=== PATIENT | female | born 1950 | race Caucasian/White ===

== ENCOUNTER 2017-07-16 18:59 | Inpatient (IN) | payer OTHER, MEDICARE ==
[~2017-07-16] VITALS: Ht 162.6 cm; Wt 108.6 kg
[2017-07-16] MEDS ORDERED: NTRGSL/4 SL (20:53)
[2017-07-16] MEDS ORDERED: CYAN10005 SQ (20:53)
[2017-07-16] MEDS ORDERED: GABA-113 PO (20:53)
[2017-07-16] MEDS ORDERED: MOME100A INH (20:53)
[2017-07-16] MEDS ORDERED: NXM/40 PO (20:53)
[2017-07-16] MEDS ORDERED: ALBU18002 INH (20:53)
[2017-07-16] MEDS ORDERED: ALBU1.257 NEB (20:53)
[2017-07-16] MEDS ORDERED: MECL1TAB40 PO (20:53)
[2017-07-16] MEDS ORDERED: BTP80 PO (20:53)
[2017-07-16] MEDS ORDERED: ALG PO (20:53)
[2017-07-16] MEDS ORDERED: FAMO40TA6 PO (20:53)
[2017-07-16] MEDS ORDERED: SIMV20TA2 PO (20:53)
[2017-07-16] MEDS ORDERED: PSYL43PO PO (20:53)
[2017-07-16] MEDS ORDERED: CETI10TA84 PO (20:53)
[2017-07-16] MEDS ORDERED: OXYC-57 PO (20:53)
[2017-07-16] MEDS ORDERED: FRS/40 PO (20:53)
[2017-07-16] MEDS ORDERED: ONDA4TAB46 PO (20:53)
[2017-07-16] MEDS ORDERED: ERGO500037 PO (20:53)
[2017-07-16] MEDS ORDERED: ALBU0.633 NEB (20:53)
[2017-07-16] MEDS ORDERED: PROM12.57 PO (20:53)
[2017-07-16] MEDS ORDERED: ALPR-411 PO (20:53)
[2017-07-16] MEDS ORDERED: LEVO50TA PO (20:53)
[2017-07-16] MEDS ORDERED: FAMOTIDINE 20 MG TAB PO ONE (21:26)
[2017-07-16] MEDS ORDERED: MAGNESIUM HYDROXIDE SUSP 30 ML UDC PO PRN (21:30)
[2017-07-16] MEDS ORDERED: POLYETHYLENE (MIRALAX) 17 GM PACK PO PRN (21:30)
[2017-07-16] MEDS ORDERED: ACETAMINOPHEN 325 MG TAB PO PRN (21:30)
--- NOTE | 2017-07-16 21:52 | History and Physical ---
History & Physical Date & Time of Service: Jul 16, 2017 at 21:38 Chief Complaint: Copd Exacerbation Primary Care Physician: No Doctor, Assigned History of Present Illness Source: patient, family 67-year-old female with past medical history of hypertension, paroxysmal atrial fibrillation, chronic pain, hyperlipidemia, hypothyroidism, generalized anxiety disorder, GERD presented as a direct admit from her PCPs office after she had presented with shortness of breath and was found to have low oxygen saturation. The patient stated that she had shortness of breath for several weeks which was getting worse today. Her oxygen saturation was about 85% at her doctor's office and after receiving a breathing treatment it had increased to 89% and she was recommended to go to the hospital. Denies any fevers or chills but complains of a cough which started about a week ago. Cough is productive of yellowish sputum. Denies any chest pain, palpitations, dizziness or lightheadedness. Also complains of nausea but no vomiting. Denies any swelling in her calves or tenderness, long haul travel, immobilization. Past Medical/Surgical History Hypertension, paroxysmal atrial fibrillation, chronic pain, hyperlipidemia, generalized anxiety disorder, GERD, hypothyroidism Past surgical history of hiatal hernia repair. Allergies Coded Allergies: Penicillins (Verified Allergy, Unknown, ., 07/16/17) Home Medications Scheduled Albuterol Sulfate (Albuterol Sulfate), 1 VIAL NEB QID Albuterol Sulfate (Albuterol Sulfate), 2 VIAL NEB Q4 Bifidobacterium (Align), 4 MG PO DAILY Cetirizine (Zyrtec), 10 MG PO DAILY Cyanocobalamin (Vitamin B-12), 1,000 MCG SQ MONTHLY Ergocalciferol (Vitamin D 16489 Unit), 1 CAP PO WK Esomeprazole Magnesium (Nexium), 40 MG PO DAILY Famotidine (Pepcid), 40 MG PO 8PM Furosemide (Lasix), 60 MG PO DAILY Gabapentin (Neurontin), 600 MG PO QID Levothyroxine Sodium (Synthroid), 1 TAB PO DAILY Mometasone Furoate-Formoterol (Dulera 100/5 Mcg), 1 PUFFS INH BID Simvastatin (Zocor), 20 MG PO QPM Sotalol HCl (Sotalol HCl), 80 MG PO BID Scheduled PRN Albuterol Sulfate (Proair Respiclick), 2 PUFFS INH Q4H PRN for SOB/Wheezing Alprazolam (Xanax), 0.25 MG PO Q8H PRN for Anxiety/Agitation Meclizine HCl (Meclizine HCl), 1 TAB PO TID PRN for Dizziness or Vertigo Nitroglycerin (Nitrostat), 1 TAB SL UD PRN for Chest Pain Ondansetron Hcl (Zofran), 4 MG PO Q6H PRN for Nausea or Vomiting Oxycodone/Acetaminophen 5MG/325MG (Percocet 5MG/325MG), 1 TABLET PO Q6H PRN for Pain Promethazine (Phenergan ), 12.5-25 MG PO Q6H PRN for Nausea or Vomiting Psyllium (Metamucil Free & Natural), 1 DOSE PO DAILY PRN for Constipation Review of Systems Constitutional: No fever, No chills Eyes: No worsening of vision ENT: No hearing loss Respiratory: + cough, + sputum, + shortness of breath, + dyspnea on exertion, No wheezing Cardiovascular: No chest pain Abdomen: No pain, No nausea, No vomiting Musculoskeletal: No joint pain Genitourinary - Female: No dysuria, No urinary frequency, No urinary urgency Neurologic: No memory loss Psychiatric: No depression symptoms Endocrine: No fatigue Hematologic / Lymphatic: No abnormal bleeding/bruising Integumentary: No rash Physical Exam Vital Signs Date Time Temp Pulse Resp B/P (MAP) Pulse Ox O2 Delivery O2 Flow Rate FiO2 07/16/17 23:43 37.0 64 20 120/77 (91) 93 Nasal Cannula 2.5 07/16/17 23:29 36.7 62 18 171/86 92 Nasal Cannula 2.0 General Appearance: WD/WN, no apparent distress Head: normocephalic Eyes: normal inspection ENT: normal ENT inspection, hearing grossly normal Neck: supple Respiratory/Chest: chest non-tender, lungs clear, normal breath sounds, no respiratory distress, no accessory muscle use Cardiovascular: regular rate, rhythm Abdomen/GI: normal bowel sounds, non tender, soft Extremities/Musculoskelatal: no calf tenderness, no pedal edema, normal range of motion Neurologic/Psych: no motor/sensory deficits, alert, oriented x 3 Skin: normal color Diagnostics Laboratory Results 07/16/17 21:41 Red Blood Count 5.14, Mean Corpuscular Volume 87.2, Mean Corpuscular Hemoglobin 29.2, Mean Corpuscular Hemoglobin Concent 33.5, Mean Platelet Volume 10.9, Neutrophils (%) (Auto) 60.3, Lymphocytes (%) (Auto) 24.7, Monocytes (%) (Auto) 8.3, Eosinophils (%) (Auto) 6.0, Basophils (%) (Auto) 0.4, Neutrophils # (Auto) 4.75, Lymphocytes # (Auto) 1.94, Monocytes # (Auto) 0.65, Eosinophils # (Auto) 0.47, Basophils # (Auto) 0.03 07/16/17 21:41 Test 07/16/17 21:41 White Blood Count 7.86 K/uL (4.8-10.8) Red Blood Count 5.14 M/uL (4.2-5.4) Hemoglobin 15.0 g/dL (12.0-16.0) Hematocrit 44.8 % (37-47) Mean Corpuscular Volume 87.2 fL (80-100) Mean Corpuscular Hemoglobin 29.2 pg (25-34) Mean Corpuscular Hemoglobin Concent 33.5 g/dl (32-36) Platelet Count 175 K/uL (130-400) Mean Platelet Volume 10.9 fL (7.4-10.4) Neutrophils (%) (Auto) 60.3 % Lymphocytes (%) (Auto) 24.7 % Monocytes (%) (Auto) 8.3 % Eosinophils (%) (Auto) 6.0 % Basophils (%) (Auto) 0.4 % Neutrophils # (Auto) 4.75 K/uL (1.4-6.5) Lymphocytes # (Auto) 1.94 K/uL (1.2-3.4) Monocytes # (Auto) 0.65 K/uL (0.11-0.59) Eosinophils # (Auto) 0.47 K/uL (0-0.5) Basophils # (Auto) 0.03 K/uL (0-0.2) RDW Standard Deviation 44.1 fL (36.4-46.3) RDW Coefficient of Variation 13.9 % (11.5-14.5) Immature Granulocyte % (Auto) 0.3 % Immature Granulocyte # (Auto) 0.02 K/uL (0.00-0.02) Anion Gap 7.0 mmol/L (3-11) Estimated GFR () 82.2 Estimated GFR (Non- 70.9 BUN/Creatinine Ratio 20.1 (10-20) Calcium Level 9.1 mg/dl (8.5-10.1) Troponin I < 0.015 ng/ml (0-0.045) Diagnostic Radiology CHEST 2 VIEWS ROUTINE CLINICAL HISTORY: 67 years-old Female presenting with shortness of breath. TECHNIQUE: PA and lateral views of the chest were obtained. COMPARISON: None. FINDINGS: Atherosclerosis of aortic arch. Cardiac silhouette within normal limits. Bibasilar bandlike opacities. No pleural effusion or pneumothorax. Osseous structures normal. Upper abdomen normal. IMPRESSION: 1. Bibasilar atelectasis suspected. No other evidence of acute cardiopulmonary disease. Electronically signed by: Bryan Locke M.D. 07/16/2017 10:42 PM Impression Assessment and Plan 67-year-old female with past medical history of hypertension, paroxysmal atrial fibrillation, chronic pain, hyperlipidemia, hypothyroidism, generalized anxiety disorder, GERD presented as a direct admit from her PCPs office after she had presented with shortness of breath and was found to have low oxygen saturation. Acute hypoxic respiratory failure: Likely secondary to COPD exacerbation - CBC, BMP, troponin ordered - EKG , chest x-ray ordered -Oxygen per protocol - Started on Solu-Medrol 60 mg every 6 hours with DuoNeb's, dulera - Consult pulmonology Paroxysmal atrial fibrillation: - Rate controlled with sotalol - She is currently not on anticoagulation. - SUKH 2 D2-vasc score of 3, 3.2% stroke risk annually Chronic pain: - Oxycodone home dose as needed Hyperlipidemia: - Continue simvastatin Hypothyroidism: - Continue Synthroid GERD: -Protonix Anxiety: Home dose Xanax as needed Chronic lower extremity swelling: - Lasix full code DVT prophylaxis: SCDs Disposition: admitted to telemetry Resident Physician Supervision Note: Pt seen/examined independently. I discussed the case with the resident and agree with the findings and plan as documented in the note. Any exceptions or clarifications are listed here: 67 y/o F Hx COPD, AF, HPL, hypothyroidism Presents as direct admit from lumonology office for COPD exacerbation OE AAO x 3 S1,2 R B/L wheezing NT, ND, BS+ No CCE P: Treat for COPD exacerbation as above - consult pulm Cont Sotalol for PAF Cont Synthroid Cont Statin Tx Documented By: Hussein Trevino Level of Care Telemetry Resuscitation Status FULL RESUSCITATION VTE Prophylaxis VTE Risk Assessment Done? Y/N: Yes Risk Level: Moderate Given or contraindicated: SCD's Resident Tracking Resident Involvement: Resident Care Provided Care Provided: Adult Hospital Medicine
[2017-07-16 22:00] LABS: BASO % 0.4 %; BASO ABS # 0.03 K/uL (0-0.2); COMPLETE YES; HEMATOCRIT 44.8 % (37-47); IG% 0.3 %; LYMPH % 24.7 %; LYMPH ABS # 1.94 K/uL (1.2-3.4); MEAN CELL VOLUME 87.2 fL (80-100); MEAN CORPUSCULAR HEMOGLOBIN 29.2 pg (25-34); MEAN CORPUSCULAR HGB CONC 33.5 g/dl (32-36); MEAN PLATELET VOLUME 10.9 fL (7.4-10.4); MONO % 8.3 %; NEUT % 60.3 %; PLATELET COUNT 175 K/uL (130-400); RED BLOOD COUNT 5.14 M/uL (4.2-5.4); WHITE BLOOD COUNT 7.86 K/uL (4.8-10.8)
[2017-07-16] MEDS: DULERA~ORDER AWAITING ACTION SCH (22:00)
[2017-07-16] MEDS ORDERED: ALBUTEROL HFA 8 GM INHALER INH PRN (22:00)
[2017-07-16 22:33] LABS: BLOOD UREA NITROGEN 17 mg/dl (7-18); BUN/CREATININE RATIO 20.1 (10-20); CALCIUM 9.1 mg/dl (8.5-10.1); CARBON DIOXIDE 29 mmol/L (21-32); CHLORIDE 105 mmol/L (98-107); CREATININE 0.84 mg/dl (0.60-1.20); GLUCOSE 101 mg/dl (70-99); POTASSIUM 4.1 mmol/L (3.5-5.1); SODIUM 141 mmol/L (136-145)
--- NOTE | 2017-07-16 22:43 | DIAGNOSTIC IMAGING REPORT ---
CHEST 2 VIEWS ROUTINE CLINICAL HISTORY: 67 years-old Female presenting with shortness of breath. TECHNIQUE: PA and lateral views of the chest were obtained. COMPARISON: None. FINDINGS: Atherosclerosis of aortic arch. Cardiac silhouette within normal limits. Bibasilar bandlike opacities. No pleural effusion or pneumothorax. Osseous structures normal. Upper abdomen normal. IMPRESSION: 1. Bibasilar atelectasis suspected. No other evidence of acute cardiopulmonary disease. Electronically signed by: Bryan Locke M.D. 07/16/2017 10:42 PM Dictated Date/Time: 07/16/2017 10:41 PM
[2017-07-16] MEDS: METHYLPREDNISOLONE IV 60 MG in SYRINGE 0 ML IV SCH (23:11)
[2017-07-16] MEDS: SOTALOL HCL 80 MG TAB PO SCH (23:12)
[2017-07-16 23:29] VITALS: BP 171/86; PULSE 62; TEMP 36.7; O2SAT 92; Ht 162.6 cm; Wt 108.6 kg
[2017-07-16] MEDS ORDERED: NURSING VERBAL MED ORDER ONE (23:30)
[2017-07-16 23:43] VITALS: BP 120/77; PULSE 64; TEMP 37; O2SAT 93
[2017-07-17] VITALS (9 sets, daily range): BP systolic 126–148; BP diastolic 65–82; PULSE 71–93; TEMP 36.4–37.1; O2SAT 90–96
[2017-07-17] MEDS: METHYLPREDNISOLONE IV 60 MG in SYRINGE 0 ML IV SCH ×4 (04:47→23:22)
[2017-07-17] MEDS: LEVOTHYROXINE 50 MCG TAB PO SCH (05:59)
[2017-07-17] MEDS: ALPRAZOLAM 0.5 MG TAB PO PRN ×3 (06:57→23:22)
--- NOTE | 2017-07-17 07:06 | CONSULTATION REPORT ---
DATE OF CONSULTATION: 07/16/2017 DICTATING FOR: Dr. Shelley Contreras. REASON FOR CONSULTATION: Shortness of breath, hypoxia. HISTORY OF PRESENT ILLNESS: The patient is a 67-year-old female who we follow in the office for mild obstructive lung defect with reversibility, who presented to the office in the outpatient setting on 07/16/2017. She presented and was evaluated in the office. She has been having several-week history of increased shortness of breath. This has worsened over the past 3-4 days. Over the past several weeks, she has had increased coughing with yellow mucus. She has not had any hemoptysis. She has had increased shortness of breath with exertion. She has also had increased shortness of breath at rest at times. She did have temperature of 100 degrees max x1. She is not sure if she had any fevers. She did have some wheezing as well. Wheezing will come and go. She states that she is having difficulty sleeping at night due to shortness of breath and cough. She states that she is using her nebulizer but it is not really helping much. She recently had her nebulizer switched to Xopenex due to recent diagnosis of paroxysmal atrial fibrillation. She states that she did have a reaction to Xopenex in the form of her mouth being irritated and having some swelling. Because of this, she went back to her albuterol/ipratropium combination which she had been on previously. She states that that is not really helping her significantly. She states that she has been having some substernal chest discomfort with this. She has also noticed some palpitations. Of note, she recently was evaluated by cardiology and diagnosed with paroxysmal atrial fibrillation and was started on sotalol. Currently, she continues to be on sotalol and is followed by cardiology in [place], [place]. She has been having some increased fatigue as well. She has not had any significant edema. She does have some baseline edema which she rates mild, does worsen through the day but will go down overnight. In reviewing her chart, she did have a CT angiogram in 12/2016 due to some substernal chest pain and pleuritic chest pain, which did not show any evidence of any abnormality. Her last PFT was in 2015, showed a forced vital capacity of 80% of predicted, an FEV1 of 74% predicted, an FEV1 to FVC ratio of 74%, residual volume of 165% and a volume-adjusted DLCO of 121% for interpretation of a mild obstructive change with reversibility with a reduced nonvolume adjusted diffusion capacity. We do not have any more recent imaging or labs. She has been feeling more fatigued and tired as well; however, she attributes this to not being able to sleep well. She denies any GI issues. No nausea or vomiting. No indigestion or heartburn. No difficulty swallowing or difficulty with her bowel. She does have a known history of aspiration; however, she denies any recent aspiration episodes. She did have some diarrhea recently and was evaluated in the ER and discharged to home. She states that that has been improving. She denies any difficulty voiding. No hesitancy or urgency. PAST MEDICAL HISTORY: Includes history of Lyme disease, history of aspiration, paroxysmal atrial fibrillation, asthma, cough, dysphagia, hiatal hernia, hypothyroidism. PAST SURGICAL HISTORY: Includes cholecystectomy, hysterectomy and tonsillectomy with adenoidectomy. FAMILY HISTORY: Includes diabetes mellitus, coronary artery disease and cerebrovascular disease. SOCIAL HISTORY: The patient is a lifelong nondrinker, nonsmoker. LISTED ALLERGIES: INCLUDE PENICILLIN. CURRENT MEDICATIONS: Include Stiolto Respimat 2 puffs daily; DuoNeb via nebulizer q. 4 hours as needed; furosemide 20 mg 3 tablets daily or as directed; potassium chloride 20 mEq 1 tablet daily; Nexium 40 mg daily; levothyroxine 50 mcg daily; cetirizine 10 mg at bedtime; gabapentin 600 mg 4 times daily; meclizine 25 mg 1 tablet 3 times daily; Zofran 4 mg every 4 hours as needed; Percocet 5/325 one tablet every 6 hours as needed; Savella 50 mg 1 tablet twice daily; sertraline, we do not have the dose, she does take 2 tablets daily; sotalol 80 mg 1 tablet twice daily; vitamin D3 5000 units 1 tablet weekly; Xanax 0.25 mg 1 tablet 3 times daily. REVIEW OF SYSTEMS: As above, otherwise unremarkable. PHYSICAL EXAMINATION: GENERAL: The patient is a 67-year-old female sitting in exam room, appears not to be feeling well. She is alert and oriented x3. She is interactive and cooperative. She is able to complete sentences for the most part without difficulty. VITAL SIGNS: Temp is 97.8, pulse 68, respiration 22, blood pressure is 122/80, pulse ox was initially 85% on room air, did go up to 92% on 2 liters. Weight is 246 pounds. HEENT: Normocephalic, atraumatic. Pupils equal, round and reactive to light and accommodation. Extraocular movements are intact. Conjunctivae are pink, nonicteric. [place], slightly pasty gingival and buccal mucosa. No erythema or edema. No white plaques noted. NECK: Thick and short. No mass. No adenopathy. No bruits noted. No tenderness to palpation. CHEST: The patient has diminished breath sounds bilaterally with the left base being worse than the right. Few expiratory wheeze. No rale or rhonchi noted. CARDIOVASCULAR: Regular rate and rhythm. No appreciated murmurs, gallops or rubs. ABDOMEN: Bowel sounds are present. Abdomen soft, nontender. No guarding, rigidity or organomegaly. EXTREMITIES: Trace edema bilaterally. No tenderness to palpation. Distal pulses are full and equal. No cyanosis noted. NEUROLOGIC: Cranial nerves II-XII are intact. No focal deficit noted. No recent imaging or labs are available at this time. IMPRESSION: The patient is a 67-year-old female with worsening shortness of breath and hypoxia with known history of mild obstructive disease which is reversible as well as mild to moderate diffusion capacity reduction. This appears to be an exacerbation of her chronic obstructive pulmonary disease along with acute respiratory insufficiency. I feel that the patient would benefit from oxygen therapy. Would recommend to do imaging of the chest in the form of a CT angiogram if her creatinine is appropriate due to recent diagnosis of paroxysmal atrial fibrillation. Also would recommend aggressive pulmonary toilet in the form of DuoNeb q. 4 hours while awake. Also recommend the patient be placed on Solu-Medrol 60 mg q. 8 hours. Also would start antibiotic coverage in the form of Levaquin 750 mg q. 24 hours. We will reevaluate in the a.m. for further management and treatment.
[2017-07-17] MEDS: ALBUT/IPRATROP 3MG/0.5MG NEB 3 ML VIAL INH SCH ×4 (07:19→19:44)
[2017-07-17] MEDS: DULERA~ORDER AWAITING ACTION SCH ×4 (08:00→23:10)
[2017-07-17] MEDS: OXYCODONE/ACETAMINOPHEN 5-325 TAB PO PRN ×3 (08:06→23:22)
[2017-07-17] MEDS: GABAPENTIN 300 MG CAP PO SCH ×4 (08:06→21:00)
[2017-07-17] MEDS: PANTOprazole SOD 40 MG TAB PO SCH (08:07)
[2017-07-17] MEDS: FAMOTIDINE 20 MG TAB PO SCH (08:07)
[2017-07-17] MEDS: FUROSEMIDE 20 MG TAB PO SCH (08:08)
[2017-07-17] MEDS: SOTALOL HCL 80 MG TAB PO SCH ×2 (08:08→21:00)
--- NOTE | 2017-07-17 08:24 | Clinical Documentation Query ---
RADHA Crawford : CLINICAL DOCUMENTATION QUERY Clinical documentation includes a diagnosis of: Acute hypoxic respiratory failure. Assessment documentation includes "no respiratory distress, no accessory muscle use" and "no apparent distress". Noted only was "oxygen saturation was about 85% at her doctor's office and after receiving a breathing treatment it had increased to 89%". No tachypnea or tachycardia noted. Currently oxygen supplementation at only 2-2.5 L/min via nasal cannula. Due to stringent requirements by our coding department, multiple clinical indicators associated with this diagnosis must be present in order for this to be coded/captured within the medical record. If appropriate, please document 2 or more of the following clinical indicators in daily progress notes and the discharge summary. If you feel the diagnosis of acute respiratory failure was made in error, or do not agree with it, simply discontinue documentation thereof. Acute Respiratory Failure indicators include: * Respirations >28 * Air hunger * Use of accessory muscles of respiration * Inability to speak in full sentences * Cyanosis * Pulse ox <90% RA or <95% on O2 *pH <7.35 or >7.45 * pO2 < 60 mm Hg (or 10mm below COPD patient's baseline) * pCO2 >50mm Hg (or 10mm above COPD patient's baseline) * mechanical ventilation * Increased work of breathing * Tachypnea IF IN AGREEMENT, YOU MUST DOCUMENT ABOVE DIAGNOSTIC STATEMENT IN DAILY PROGRESS NOTES AND DISCHARGE SUMMARY. This document is not part of the patient's record. Thank You, Jovany Irwin, RENETTA [phone]
[2017-07-17] MEDS ORDERED: OPTIRAY 320 IV PRN (08:30)
--- NOTE | 2017-07-17 08:34 | Clinical Documentation Query ---
RADHA Crawford : CLINICAL DOCUMENTATION QUERY Per EMR documentation of nursing staff, BMI noted to be 42.2 kg/m*m. In order to capture this clinically relevant data, the provider must explicitly document an associated condition. As appropriate, consider documentation of such as suggested below. Thank you. In your clinical opinion is this patient being managed for: ( ) Morbid obesity, BMI 42.4 kg/m*m ( ) Not Agree ( ) Other explanation of clinical findings (Please Explain) ( ) Unable to determine (Please Define) ( ) Need to Discuss The medical record reflects the following clinical findings, treatment, and risk factors. Clinical Indicators: As above Treatment: Treatment of conditions listed as risk factors Risk Factors: Chronic pain, caloric intake >expenditure, anxiety disorder Please clarify and document your clinical opinion in the progress notes and discharge summary. Terms such as "probable", "suspected", "likely", "questionable", "possible", or "still to be ruled out" are acceptable. IF IN AGREEMENT, YOU MUST DOCUMENT ABOVE DIAGNOSTIC STATEMENT IN DAILY PROGRESS NOTES AND DISCHARGE SUMMARY. This document is not part of the patient's record. Thank You, Jovany Irwin, RN [phone]
[2017-07-17] MEDS ORDERED: LEVOFLOXACIN 750 MG TAB PO SCH (11:00)
[2017-07-17] MEDS: ONDANSETRON INJ 2 MG/ML 2 ML VIAL IV PRN ×3 (11:35→23:24)
--- NOTE | 2017-07-17 13:33 | Family Medicine Progress Note ---
Progress Note Date of Service Jul 17, 2017. Subjective Pt evaluation today including: conversation w/ patient, physical exam, chart review, lab review, review of studies Pain: No pain reported this morning Voiding: no voiding problems, no incontinence Patient is resting comfortably in bed this morning and states that her shortness of breath has significantly improved with oxygen. She is still continuing to have a cough with sputum production. She also had an episode of vomiting with coughing, vomiting yellowish fluid. She is also feeling more nauseous and states that she has been having daily nausea and dry heaving since her Joseluis fundoplication 6 years ago and is on daily Phenergan. she also states that her Atrial Fibrillation was discovered when she was placed on a holter for 1 month and was subsequently started on Sotalol by Dr. Vitale. Constitutional: + fatigue, No fever, No chills, No weakness Respiratory: + cough, + sputum, No wheezing, No shortness of breath Cardiovascular: No chest pain, No palpitations Abdomen: + nausea, + vomiting, No pain, No diarrhea, No constipation, No GI bleeding Musculoskeletal: No muscle pain Female : No dysuria Medications Current Inpatient Medications Medications (Trade) Dose Ordered Sig/Juliane Route Start Time Stop Time Status Last Admin Dose Admin Acetaminophen (Tylenol Tab) 650 mg Q4H PRN PO 07/16/17 21:30 08/15/17 21:29 Magnesium Hydroxide (Milk Of Magnesia Susp) 30 ml Q12H PRN PO 07/16/17 21:30 08/15/17 21:29 Ondansetron HCl (Zofran Inj) 4 mg Q6H PRN IV 07/16/17 21:30 08/15/17 21:29 07/17/17 11:35 4 MG Polyethylene (Miralax Powder Packet) 17 gm DAILY PRN PO 07/16/17 21:30 08/15/17 21:29 Alprazolam (Xanax Tab) 0.25 mg Q8H PRN PO 07/16/17 21:30 08/15/17 21:29 07/17/17 15:40 0.25 MG Famotidine (Pepcid Tab) 40 mg DAILY PO 07/17/17 09:00 08/16/17 08:59 07/17/17 08:07 40 MG Furosemide (Lasix Tab) 60 mg DAILY PO 07/17/17 09:00 08/16/17 08:59 07/17/17 08:08 60 MG Gabapentin (Neurontin Cap) 600 mg QID PO 07/17/17 09:00 08/16/17 08:59 07/17/17 15:44 600 MG Levothyroxine Sodium (Synthroid Tab) 50 mcg DAILYBB PO 07/17/17 06:00 08/16/17 05:59 07/17/17 05:59 50 MCG Simvastatin (Zocor Tab) 20 mg QPM PO 07/17/17 21:00 08/16/17 20:59 Sotalol HCl (Betapace Tab) 80 mg BID PO 07/17/17 09:00 08/16/17 08:59 07/17/17 08:08 80 MG Albuterol (Ventolin Hfa Inhaler) 2 puffs Q4H PRN INH 07/16/17 22:00 08/15/17 21:59 Pantoprazole Sodium (Protonix Tab) 40 mg QAM PO 07/17/17 09:00 08/16/17 08:59 07/17/17 08:07 40 MG Miscellaneous Information (Order Awaiting Action) 1 ea QS N/A 07/16/17 22:00 08/15/17 21:59 Methylprednisolone Sodium Succinate 60 mg/Syringe 0.96 ml @ 1.5 mls/min Q6H IV 07/16/17 22:00 08/15/17 21:59 07/17/17 15:42 1.5 MLS/MIN Albuterol/ Ipratropium (Duoneb) 3 ml QIDR INH 07/17/17 08:00 08/16/17 07:59 07/17/17 15:17 3 ML Oxycodone/ Acetaminophen (Percocet 5-325mg Tab) 1 tab Q6H PRN PO 07/17/17 01:30 07/31/17 01:29 07/17/17 15:39 1 TAB Ioversol (Optiray 320) 100 ml UD PRN IV 07/17/17 08:30 07/21/17 08:29 Promethazine HCl 25 mg/Sodium Chloride 51 ml @ 204 mls/hr Q6H PRN IV 07/17/17 14:30 08/16/17 14:29 Levofloxacin 500 mg/Prmx 100 ml @ 100 mls/hr DAILY@1100 IV 07/18/17 11:00 07/20/17 10:59 Objective Vital Signs Date Time Temp Pulse Resp B/P (MAP) Pulse Ox O2 Delivery O2 Flow Rate FiO2 07/17/17 15:18 71 18 94 Nasal Cannula 2.5 07/17/17 15:01 36.4 71 20 126/74 (91) 93 Nasal Cannula 3.0 07/17/17 12:00 Nasal Cannula 2.0 07/17/17 11:37 37.0 72 18 131/65 (87) 96 07/17/17 08:00 Nasal Cannula 2.0 07/17/17 07:55 36.8 71 18 127/72 (90) 92 07/17/17 07:15 71 18 92 Nasal Cannula 2.5 07/17/17 04:30 36.9 71 18 126/78 (94) 90 Nasal Cannula 2.5 07/17/17 04:00 Nasal Cannula 2.0 07/16/17 23:59 Nasal Cannula 2.0 07/16/17 23:43 37.0 64 20 120/77 (91) 93 Nasal Cannula 2.5 07/16/17 23:29 36.7 62 18 171/86 92 Nasal Cannula 2.0 Physical Exam General Appearance: WD/WN, no apparent distress Eyes: normal inspection, sclerae normal Respiratory/Chest: chest non-tender, no respiratory distress, no accessory muscle use, + wheezing (mild expiratory wheezing) Cardiovascular: no edema, no gallop, no murmur, + irregularly irregular Abdomen: normal bowel sounds, non tender, soft Extremities: non-tender, no calf tenderness, + pedal edema (1+) Neurologic/Psychiatric: alert, oriented x 3, + depressed affect Laboratory Results Results Past 24 Hours Test 07/16/17 21:41 07/17/17 06:02 07/17/17 14:08 Range/Units White Blood Count 7.86 4.8-10.8 K/uL Red Blood Count 5.14 4.2-5.4 M/uL Hemoglobin 15.0 12.0-16.0 g/dL Hematocrit 44.8 37-47 % Mean Corpuscular Volume 87.2 80-100 fL Mean Corpuscular Hemoglobin 29.2 25-34 pg Mean Corpuscular Hemoglobin Concent 33.5 32-36 g/dl Platelet Count 175 130-400 K/uL Mean Platelet Volume 10.9 7.4-10.4 fL Neutrophils (%) (Auto) 60.3 % Lymphocytes (%) (Auto) 24.7 % Monocytes (%) (Auto) 8.3 % Eosinophils (%) (Auto) 6.0 % Basophils (%) (Auto) 0.4 % Neutrophils # (Auto) 4.75 1.4-6.5 K/uL Lymphocytes # (Auto) 1.94 1.2-3.4 K/uL Monocytes # (Auto) 0.65 0.11-0.59 K/uL Eosinophils # (Auto) 0.47 0-0.5 K/uL Basophils # (Auto) 0.03 0-0.2 K/uL RDW Standard Deviation 44.1 36.4-46.3 fL RDW Coefficient of Variation 13.9 11.5-14.5 % Immature Granulocyte % (Auto) 0.3 % Immature Granulocyte # (Auto) 0.02 0.00-0.02 K/uL Sodium Level 141 136-145 mmol/L Potassium Level 4.1 3.5-5.1 mmol/L Chloride Level 105 98-107 mmol/L Carbon Dioxide Level 29 21-32 mmol/L Anion Gap 7.0 3-11 mmol/L Blood Urea Nitrogen 17 7-18 mg/dl Creatinine 0.84 0.60-1.20 mg/dl Estimated GFR () 82.2 Estimated GFR (Non- 70.9 BUN/Creatinine Ratio 20.1 10-20 Random Glucose 101 70-99 mg/dl Calcium Level 9.1 8.5-10.1 mg/dl Troponin I < 0.015 0-0.045 ng/ml Hepatitis C Antibody Screen PRELIM POS NEG Assessment and Plan Patient is a 67 year old female with a past medical history of mild obstructive pulmonary disease, HTN, paroxysmal atrial fibrillation, chronic pain, hyperlipidemia, hypothyroidism, LUBNA, GERD, and s/p Joseluis fundoplication 6 years ago that presents with a several week history of shortness of breath and cough 1) Acute Hypoxic Respiratory Failure - Possible COPD exacerbation vs Asthma vs Pulmonary Embolism - IV Methylprednisolone 60mg --> Made q8h due to nausea while on q6h dosing - Levaquin 500mg IV --> Vomited after first dose (PO) this afternoon so change to IV for tomorrow morning - Duoneb QID - Albuterol q4h PRN - Supplemental oxygen to maintain oxygen saturation >90% - Hold home combivent for time being - Patient on home Dulera that is not in Pharmacy Formulary --> Currently getting Duonebs with steroid but encourage patient to have someone bring from home - Ordered CTA for PE to evaluate for pulmonary embolism 2) Nausea - Chronic since Joseluis Fundoplication 6 years ago - Zofran 4mg IV PRN - 1 dose this morning and still nauseous - Phenergan 30mg IV q6h scheduled --> On Phenergan at home 3) Paroxysmal Atrial Fibrillation - EKG: Currently in NSR - On Sotalol 80mg BID - Obtain cardiology records --> Followed by Dr. Vitale - Currently not anticoagulated 4) Lower Extremity Edema - Lasix 60mg daily 5) Hyperlipidemia - Zocor 6) GERD - Protonix 7) Chronic Pain - Gabapentin - Pepcid 8) DVT - Lovenox 9) Code Status - Full Resuscitation Resident Tracking Resident Involvement: Resident Care Provided Care Provided: Adult Hospital Medicine Reviewed: Pt Seen/Exam by Me History Resident Physician Supervision Note: I interviewed and examined the patient. Discussed with Dr. Izaguirre and agree with findings and plan as documented in the note. Any exceptions or clarifications are listed here: Patient feeling very nauseous right now which is chronic for her but was a little bit worse today after taking the oral Levaquin. Her breathing feels better now that she is on oxygen. Patient reports she has never been on anticoagulation for her history of atrial fibrillation, she is only been on sotalol. Telemetry and vitals reviewed Obese, appears in mild distress, lying in bed on her side. Regular rate and rhythm, no murmurs gallops rubs Lungs with faint extremely wheezes and prolonged expiratory phase Abdomen obese positive bowel sounds soft nontender Extremities no edema Skin no rashes 67-year-old female with acute hypoxemic respiratory failure and what appears to be asthma with possible mixed picture with COPD and decreased DLCO on recent PFTs. Appreciate pulmonary consult -Continue nebulizers and supplemental oxygen -Obtain cardiology records for more information on her atrial fibrillation, question if she should be on anticoagulation? -Check CT angiogram of the chest rule out PE as cause of hypoxemia -IV Phenergan for nausea Documented By: Rajni Haro
--- NOTE | 2017-07-17 14:33 | Family Medicine Progress Note ---
Progress Note Date of Service Jul 17, 2017. Subjective Pt evaluation today including: conversation w/ patient, physical exam, chart review, lab review, review of studies Pain: No pain reported this morning Voiding: no voiding problems Patient resting comfortably in bed
--- NOTE | 2017-07-17 14:58 | DIAGNOSTIC IMAGING REPORT ---
(CHEST FOR PE) ANGIO WITH CLINICAL HISTORY: 67 years-old Female presenting with hypoxia, COPD exacerbation, clinical concern for pulmonary embolus. TECHNIQUE: Multidetector CT angiography of the chest was performed after administration of intravenous contrast. 3-D volumetric and maximum intensity projection (MIP) images were subsequently reconstructed for review. IV contrast: 120 mL of Optiray 320. A dose lowering technique was used consistent with the principles of ALARA (as low as reasonably achievable). COMPARISON: Chest x-ray from 07/16/2017. CT DOSE (mGy.cm): The estimated cumulative dose is 627.21 mGy.cm. FINDINGS: Director Of Business Services topogram: Unremarkable. Pulmonary vasculature: The study is suboptimal for assessment of the pulmonary vascular tree secondary to severe respiratory motion artifact. No gross filling defect within the central pulmonary arteries. Main pulmonary artery is mildly enlarged. No flattening of the interventricular septum. No intracardiac filling defect. Reflux into the hepatic veins suggests elevated right heart pressures. Remaining chest: On soft tissue windows, normal thyroid and thoracic inlet. No axillary, supraclavicular, hilar, or mediastinal lymphadenopathy. Atherosclerosis of aortic arch. Normal heart size. No pericardial or pleural effusion. Mild central biliary ductal prominence. Small hiatal hernia. Postsurgical changes at the gastroesophageal junction may suggest prior Jessica procedure or resection. On lung windows, minimal bandlike opacities at the right lung base likely atelectasis or scarring. No emphysematous changes. No other focal infiltrate. Airways patent. On bone windows, degenerative changes of the thoracic spine. IMPRESSION: 1. No evidence of central pulmonary embolus. The study is suboptimal, degraded by extensive respiratory motion artifact limiting diagnostic sensitivity. No convincing evidence of acute intrathoracic pathology. Minimal right basilar atelectasis or scarring. 2. Allowing for limited image quality, no significant emphysematous changes. Electronically signed by: Bryan Locke M.D. 07/17/2017 2:56 PM Dictated Date/Time: 07/17/2017 2:51 PM
--- NOTE | 2017-07-17 18:02 | Pulmonology Progress Note ---
Pulmonary Progress Note Date of Service Jul 17, 2017. Attending Dr. Contreras Subjective Patient seen and examined this afternoon. She states that she is feeling nauseous. She had episode of vomiting. She still complains of intermittent coughing associated with yellowish-green productive sputum. Objective VS reviewed Gen: She looks ill, AAOx3, no respiratory distress noted CVS: S1, S2, RRR Lungs: bilateral sporadic wheezing throughout lung jackson Abd: obese, NT/ND, BS+ Ext: no cyanosis, no clubbing, bilateral peripheral edema Labs reviewed Imaging reviewed EKG 07/16/2017 Normal sinus rhythm Low voltage QRS ST & T wave abnormality, consider anterior ischemia CT chest 07/17/2017 IMPRESSION: 1. No evidence of central pulmonary embolus. The study is suboptimal, degraded by extensive respiratory motion artifact limiting diagnostic sensitivity. No convincing evidence of acute intrathoracic pathology. Minimal right basilar atelectasis or scarring. 2. Allowing for limited image quality, no significant emphysematous changes. CXR: 07/17/2017 FINDINGS: Atherosclerosis of aortic arch. Cardiac silhouette within normal limits. Bibasilar bandlike opacities. No pleural effusion or pneumothorax. Osseous structures normal. Upper abdomen normal. IMPRESSION: 1. Bibasilar atelectasis suspected. No other evidence of acute cardiopulmonary disease. Assessment & Plan ACOS with exacerbation Hypoxia Patient appears to have components of both asthma and COPD, this suggest an overlap syndrome. CT chest is negative for PE, however the main pulmonary artery is mildly enlarged with reflux into the hepatic veins suggestive of elevated right heart pressures. At this time I would suggest a TTE to further assess cardiac function and RVSP. Continue with supplemental oxygen therapy to maintain SaO2 btw 88-92% Continue with albuterol/ipratropium q6h prn, however would switch albuterol to xopenex Continue with Levoquin IV daily, Solumedrol 60 mg Q8H, and Lasix Data Medications: Current Inpatient Medications Medications (Trade) Dose Ordered Sig/Juliane Route Start Time Stop Time Status Last Admin Dose Admin Acetaminophen (Tylenol Tab) 650 mg Q4H PRN PO 07/16/17 21:30 08/15/17 21:29 Magnesium Hydroxide (Milk Of Magnesia Susp) 30 ml Q12H PRN PO 07/16/17 21:30 08/15/17 21:29 Ondansetron HCl (Zofran Inj) 4 mg Q6H PRN IV 07/16/17 21:30 08/15/17 21:29 07/17/17 11:35 4 MG Polyethylene (Miralax Powder Packet) 17 gm DAILY PRN PO 07/16/17 21:30 08/15/17 21:29 Alprazolam (Xanax Tab) 0.25 mg Q8H PRN PO 07/16/17 21:30 08/15/17 21:29 07/17/17 06:57 0.25 MG Famotidine (Pepcid Tab) 40 mg DAILY PO 07/17/17 09:00 08/16/17 08:59 07/17/17 08:07 40 MG Furosemide (Lasix Tab) 60 mg DAILY PO 07/17/17 09:00 08/16/17 08:59 07/17/17 08:08 60 MG Gabapentin (Neurontin Cap) 600 mg QID PO 07/17/17 09:00 08/16/17 08:59 07/17/17 08:06 600 MG Levothyroxine Sodium (Synthroid Tab) 50 mcg DAILYBB PO 07/17/17 06:00 08/16/17 05:59 07/17/17 05:59 50 MCG Simvastatin (Zocor Tab) 20 mg QPM PO 07/17/17 21:00 08/16/17 20:59 Sotalol HCl (Betapace Tab) 80 mg BID PO 07/17/17 09:00 08/16/17 08:59 07/17/17 08:08 80 MG Albuterol (Ventolin Hfa Inhaler) 2 puffs Q4H PRN INH 07/16/17 22:00 08/15/17 21:59 Pantoprazole Sodium (Protonix Tab) 40 mg QAM PO 07/17/17 09:00 08/16/17 08:59 07/17/17 08:07 40 MG Miscellaneous Information (Order Awaiting Action) 1 ea QS N/A 07/16/17 22:00 08/15/17 21:59 Methylprednisolone Sodium Succinate 60 mg/Syringe 0.96 ml @ 1.5 mls/min Q6H IV 07/16/17 22:00 08/15/17 21:59 07/17/17 10:30 1.5 MLS/MIN Albuterol/ Ipratropium (Duoneb) 3 ml QIDR INH 07/17/17 08:00 08/16/17 07:59 07/17/17 07:19 3 ML Oxycodone/ Acetaminophen (Percocet 5-325mg Tab) 1 tab Q6H PRN PO 07/17/17 01:30 07/31/17 01:29 07/17/17 08:06 1 TAB Ioversol (Optiray 320) 100 ml UD PRN IV 07/17/17 08:30 07/21/17 08:29 Promethazine HCl 25 mg/Sodium Chloride 51 ml @ 204 mls/hr Q6H PRN IV 07/17/17 14:30 08/16/17 14:29 Levofloxacin 500 mg/Prmx 100 ml @ 100 mls/hr DAILY@1100 IV 07/18/17 11:00 07/20/17 10:59 I & O: 24-Hour Column 07/18/17 08:00 Intake Total 320 ml Output Total 1100 ml Balance -780 ml Vital Signs: Date Time Temp Pulse Resp B/P (MAP) Pulse Ox O2 Delivery O2 Flow Rate FiO2 07/17/17 15:01 36.4 71 20 126/74 (91) 93 Nasal Cannula 3.0 07/17/17 12:00 Nasal Cannula 2.0 07/17/17 11:37 37.0 72 18 131/65 (87) 96 07/17/17 08:00 Nasal Cannula 2.0 07/17/17 07:55 36.8 71 18 127/72 (90) 92 07/17/17 04:30 36.9 71 18 126/78 (94) 90 Nasal Cannula 2.5 07/17/17 04:00 Nasal Cannula 2.0 07/16/17 23:59 Nasal Cannula 2.0 07/16/17 23:43 37.0 64 20 120/77 (91) 93 Nasal Cannula 2.5 07/16/17 23:29 36.7 62 18 171/86 92 Nasal Cannula 2.0 Laboratory Results: Last 24 Hours Test 07/16/17 21:41 07/17/17 06:02 07/17/17 14:08 White Blood Count 7.86 K/uL Red Blood Count 5.14 M/uL Hemoglobin 15.0 g/dL Hematocrit 44.8 % Mean Corpuscular Volume 87.2 fL Mean Corpuscular Hemoglobin 29.2 pg Mean Corpuscular Hemoglobin Concent 33.5 g/dl Platelet Count 175 K/uL Mean Platelet Volume 10.9 fL Neutrophils (%) (Auto) 60.3 % Lymphocytes (%) (Auto) 24.7 % Monocytes (%) (Auto) 8.3 % Eosinophils (%) (Auto) 6.0 % Basophils (%) (Auto) 0.4 % Neutrophils # (Auto) 4.75 K/uL Lymphocytes # (Auto) 1.94 K/uL Monocytes # (Auto) 0.65 K/uL Eosinophils # (Auto) 0.47 K/uL Basophils # (Auto) 0.03 K/uL RDW Standard Deviation 44.1 fL RDW Coefficient of Variation 13.9 % Immature Granulocyte % (Auto) 0.3 % Immature Granulocyte # (Auto) 0.02 K/uL Sodium Level 141 mmol/L Potassium Level 4.1 mmol/L Chloride Level 105 mmol/L Carbon Dioxide Level 29 mmol/L Anion Gap 7.0 mmol/L Blood Urea Nitrogen 17 mg/dl Creatinine 0.84 mg/dl Estimated GFR () 82.2 Estimated GFR (Non- 70.9 BUN/Creatinine Ratio 20.1 Random Glucose 101 mg/dl Calcium Level 9.1 mg/dl Troponin I < 0.015 ng/ml Hepatitis C Antibody Screen PRELIM POS
--- NOTE | 2017-07-17 19:16 | History & Physical Bridge Note ---
H&P Re-Evaluation Bridge Note: I have examined the patient, reviewed the Pulmonary Consultation History & Physical and in the interval since the performance of the Pulmonary History & Physical I have noted the following changes of clinical significance: No changes noted Attending Addendum: Patient most likely has a Asthma/ COPD overlap, now with mildly hypoxia I do agree with treating her empirically with antibiotics. Continue with bronchodilators and corticosteroids. TTE should be done to rule out diastolic HF and screen for PHTN Continue with DVT ppx Pulmonary will continue to follow
[2017-07-17] MEDS: SIMVASTATIN 20 MG TAB PO SCH (21:00)
[2017-07-17] MEDS: ENOXAPARIN 40 MG/0.4 ML SYR SQ SCH (21:00)
[2017-07-18] VITALS (10 sets, daily range): BP systolic 106–154; BP diastolic 64–87; PULSE 64–81; TEMP 36.7–37.2; O2SAT 90–96
[2017-07-18] MEDS: IPRATROPIUM BROMIDE NEB SOLN 0.02% 2.5 ML VIAL INH SCH ×4 (01:48→19:18)
[2017-07-18] MEDS: LEVALBUTEROL 0.63MG/3 ML NEB INH SCH ×4 (01:48→19:18)
[2017-07-18] MEDS: PROMETHAZINE HCL INJ 25 MG in SODIUM CHLORIDE 0.9% 50ML 50 ML IV PRN ×2 (02:15→13:23)
[2017-07-18] MEDS ORDERED: LEVALBUTEROL/IPRATROPIUM NEB INH SCH (03:00)
[2017-07-18] MEDS ORDERED: LEVALBUTEROL 1.25MG/0.5ML NEB INH SCH (03:00)
[2017-07-18] MEDS: LEVOTHYROXINE 50 MCG TAB PO SCH (05:10)
[2017-07-18 05:32] LABS: COMPLETE YES; HEMATOCRIT 47.2 % (37-47); IG% 0.3 %; LYMPH % 7.9 %; MEAN CELL VOLUME 88.7 fL (80-100); MEAN CORPUSCULAR HEMOGLOBIN 29.5 pg (25-34); MEAN CORPUSCULAR HGB CONC 33.3 g/dl (32-36); MEAN PLATELET VOLUME 10.8 fL (7.4-10.4); MONO % 3.1 %; NEUT % 88.7 %; PLATELET COUNT 201 K/uL (130-400); RED BLOOD COUNT 5.32 M/uL (4.2-5.4); WHITE BLOOD COUNT 12.72 K/uL (4.8-10.8)
[2017-07-18 05:45] LABS: INR 1.1 (0.9-1.1); PROTHROMBIN TIME (PATIENT) 11.4 SECONDS (9.0-12.0)
[2017-07-18 06:02] LABS: BUN/CREATININE RATIO 18.9 (10-20); CALCIUM 9.1 mg/dl (8.5-10.1); CREATININE 0.99 mg/dl (0.60-1.20); POTASSIUM 3.9 mmol/L (3.5-5.1)
[2017-07-18] MEDS: DULERA~ORDER AWAITING ACTION SCH ×2 (08:00→16:00)
[2017-07-18] MEDS: METHYLPREDNISOLONE IV 60 MG in SYRINGE 0 ML IV SCH (08:18)
[2017-07-18] MEDS: SOTALOL HCL 80 MG TAB PO SCH ×2 (08:19→20:42)
[2017-07-18] MEDS: PANTOprazole SOD 40 MG TAB PO SCH (08:19)
[2017-07-18] MEDS: GABAPENTIN 300 MG CAP PO SCH ×4 (08:20→20:42)
[2017-07-18] MEDS: FUROSEMIDE 20 MG TAB PO SCH ×2 (08:21→08:32)
[2017-07-18] MEDS: FAMOTIDINE 20 MG TAB PO SCH (08:21)
[2017-07-18] MEDS: ALPRAZOLAM 0.5 MG TAB PO PRN ×2 (08:28→18:36)
[2017-07-18] MEDS: OXYCODONE/ACETAMINOPHEN 5-325 TAB PO PRN ×2 (08:29→18:36)
[2017-07-18] MEDS ORDERED: LEVOFLOXACIN / D5W 500 MG in PREMIXED IN D5W 100 ML IV SCH (11:00)
[2017-07-18] MEDS: ONDANSETRON INJ 2 MG/ML 2 ML VIAL IV PRN (12:01)
--- NOTE | 2017-07-18 12:52 | PROGRESS NOTE ---
DATE: 07/18/2017 DATE: 07/18/2017 PROBLEM LIST: Includes COPD/asthma with exacerbation, dyspnea on exertion and hypoxia. SUBJECTIVE: The patient reports today that from a pulmonary standpoint breathing is improving. She states that as long as she has oxygen on she feels pretty well. She states that she does have a cough that continues, states cough is not as bad. She is getting some yellow mucus up with the cough yet, but she states it is living advisor today. She is not having to work as hard to breathe. She has not noted any wheezing. No chest heaviness or tightness. She denies any chest pain. She has not noted any palpitations. She has not noted any other cardiac issues. She did ask why we were doing the echocardiogram this morning when she was in for her breathing. I did explain to her that her CT angiogram did show some mild enlargement of the main pulmonary artery and we have to consider pulmonary hypertension. I tried to explain pulmonary hypertension to some degree with the patient. She voiced understanding. The patient reports that she still has some nausea at times. She notices this when the cough is worse. She feels like she coughs and this makes her nauseated. She does have a baseline nausea at home following a Joseluis fundoplication about 6 years ago. She states that when she does vomit it is a yellow material that she is vomiting. She does have a history of cholecystectomy. She denies any other GI complaints. No diarrhea. She is not having any difficulty voiding. She states that she does not want to take the Lasix on a regular basis anymore, she states that she was just taking it once a week. Hospitalist, was in with me and is going to make that change with her. We did discuss the need to use it periodically, probably more than once a week, but we can come back. She states that she is already tired and getting up to go to the restroom to void is making her more tired. She is having improvement in the swelling in her legs. She has not had any other concerns or problems at this time. OBJECTIVE: GENERAL: The patient is a 67-year-old female lying in bed. She was sleeping when I entered but awoke easily. Mood and affect are flat. Slightly depressed, otherwise she is alert and oriented x3, did not appear to have any respiratory distress and was able to complete sentences without difficulty. No acute distress in general. VITAL SIGNS: Temperature 37.0, pulse 81, respirations 20, blood pressure is 127/76, pulse ox 96% on 3 liters. HEAD, EYES, EARS, NOSE, AND THROAT: Normocephalic, atraumatic. Pupils equal, round and reactive to light and accommodation. Extraocular movements are intact. [place] moist gingival and buccal mucosa. NECK: Short neck, thick. No mass. No adenopathy. No appreciated JVD, no thyromegaly. CHEST: The patient has diminished breath sounds bilaterally. I did not appreciate any wheezing on exam today. CARDIOVASCULAR: Regular rate and rhythm. No murmurs, gallops or rubs noted. ABDOMEN: Obese, soft, nontender. Bowel sounds are present throughout. No guarding, rigidity or organomegaly. EXTREMITIES: The patient has at most trace edema bilaterally in lower extremities up to mid berger area. No tenderness to palpation. Distal pulses are equal and full. There is no evidence of cyanosis or clubbing. NEUROLOGIC: Cranial nerves II through XII are intact. No focal deficit noted. INS AND OUTS: The patient had a balance of negative 1580 mL yesterday, today she has got a negative balance at 352 to this point. LABORATORY DATA: Shows a white count of 12,000, H&H 15.7 and 47.2, platelet count 201,000. IMAGING: No new imaging data today. IMPRESSION: This is a 67-year-old female with asthma/chronic obstructive pulmonary disease exacerbation. This is improving. Would recommend continuing antibiotics to complete a 7-day course of Levaquin. Will decrease her steroids as her lung sounds are improved and she is reporting improvement in her symptoms. As outpatient the patient has been borderline at 90% range on her oxygen on room air for a while, so I do not think the patient probably will need to be placed on supplemental oxygen on discharge. Did put an order in for a 2-step to be done. We also did an echocardiogram this morning. We are awaiting the results on that to evaluate for right heart pressures. At this point, will see what this is. I did speak with the hospitalist and recommend that the patient continue in hospital today to be tapered down on her steroids and then transition over to oral. If she is discharged tomorrow steroids can be started at 40 mg and tapered by 10 mg every 2 days. I would like to see her in the office in approximately 1-2 weeks. I am having the office check to see if she had any previous echocardiograms for comparison as well. We will continue to follow through hospitalization. [place]
--- NOTE | 2017-07-18 16:30 | Family Medicine Progress Note ---
Progress Note Date of Service Jul 18, 2017. Subjective Pt evaluation today including: conversation w/ patient, physical exam, chart review, lab review, review of studies Pain: No pain reported this morning Voiding: no voiding problems, no incontinence Patient states that she is still feeling nauseous and had an episode of vomiting after her dose of Levaquin IV. She states that her shortness of breath has improved since admission. She also refused her lasix this morning and states she only takes it once per week because of how much it makes her go to the bathroom. Constitutional: + fatigue, No fever, No chills, No sweats Respiratory: + cough, + sputum, No wheezing, No shortness of breath Cardiovascular: No chest pain, No palpitations Abdomen: + nausea, + vomiting, No pain, No diarrhea, No constipation Female : No dysuria Medications Current Inpatient Medications Medications (Trade) Dose Ordered Sig/Juliane Route Start Time Stop Time Status Last Admin Dose Admin Acetaminophen (Tylenol Tab) 650 mg Q4H PRN PO 07/16/17 21:30 08/15/17 21:29 Magnesium Hydroxide (Milk Of Magnesia Susp) 30 ml Q12H PRN PO 07/16/17 21:30 08/15/17 21:29 Polyethylene (Miralax Powder Packet) 17 gm DAILY PRN PO 07/16/17 21:30 08/15/17 21:29 Alprazolam (Xanax Tab) 0.25 mg Q8H PRN PO 07/16/17 21:30 08/15/17 21:29 07/18/17 08:28 0.25 MG Famotidine (Pepcid Tab) 40 mg DAILY PO 07/17/17 09:00 08/16/17 08:59 07/18/17 08:21 40 MG Gabapentin (Neurontin Cap) 600 mg QID PO 07/17/17 09:00 08/16/17 08:59 07/18/17 12:53 600 MG Levothyroxine Sodium (Synthroid Tab) 50 mcg DAILYBB PO 07/17/17 06:00 08/16/17 05:59 07/18/17 05:10 50 MCG Simvastatin (Zocor Tab) 20 mg QPM PO 07/17/17 21:00 08/16/17 20:59 Sotalol HCl (Betapace Tab) 80 mg BID PO 07/17/17 09:00 08/16/17 08:59 07/18/17 08:19 80 MG Albuterol (Ventolin Hfa Inhaler) 2 puffs Q4H PRN INH 07/16/17 22:00 08/15/17 21:59 Pantoprazole Sodium (Protonix Tab) 40 mg QAM PO 07/17/17 09:00 08/16/17 08:59 07/18/17 08:19 40 MG Miscellaneous Information (Order Awaiting Action) 1 ea QS N/A 07/16/17 22:00 08/15/17 21:59 Oxycodone/ Acetaminophen (Percocet 5-325mg Tab) 1 tab Q6H PRN PO 07/17/17 01:30 07/31/17 01:29 07/18/17 08:29 1 TAB Ioversol (Optiray 320) 100 ml UD PRN IV 07/17/17 08:30 07/21/17 08:29 Promethazine HCl 25 mg/Sodium Chloride 51 ml @ 204 mls/hr Q6H PRN IV 07/17/17 14:30 08/16/17 14:29 07/18/17 13:23 204 MLS/HR Enoxaparin Sodium (Lovenox Inj) 40 mg Q24H SQ 07/17/17 21:00 08/16/17 20:59 Ipratropium [place] (Atrovent 0.02% 0.5MG/2.5ML Neb) 0.5 mg Q6R INH 07/18/17 03:00 08/17/17 02:59 07/18/17 13:53 0.5 MG Levalbuterol (Xopenex 0.63 Mg/ 3 Ml Neb) 0.63 mg Q6R INH 07/18/17 03:00 08/17/17 02:59 07/18/17 13:53 0.63 MG Methylprednisolone Sodium Succinate 40 mg/Syringe 0.64 ml @ 1.5 mls/min Q12 IV 07/18/17 21:00 08/15/17 21:59 Objective Vital Signs Date Time Temp Pulse Resp B/P (MAP) Pulse Ox O2 Delivery O2 Flow Rate FiO2 07/18/17 15:56 36.9 66 20 106/67 (80) 96 Nasal Cannula 3.0 07/18/17 13:55 67 16 91 Nasal Cannula 3.0 07/18/17 12:00 Room Air 07/18/17 11:39 37.0 67 20 128/68 (88) 96 07/18/17 08:00 Room Air 07/18/17 07:33 37.0 81 20 127/76 (93) 96 07/18/17 07:30 77 16 93 Nasal Cannula 3.0 07/18/17 04:00 Nasal Cannula 3.0 07/18/17 03:39 36.7 69 18 154/87 (109) 91 Nasal Cannula 3.0 07/18/17 01:49 73 16 90 Nasal Cannula 2.5 07/17/17 23:59 Nasal Cannula 3.0 07/17/17 23:38 37.1 80 24 148/82 (104) 90 Nasal Cannula 3.0 07/17/17 20:00 Nasal Cannula 3.0 07/17/17 19:46 93 18 90 Nasal Cannula 2.5 07/17/17 19:08 37.0 74 20 140/82 (101) 92 Nasal Cannula 2.5 Physical Exam General Appearance: WD/WN, no apparent distress Eyes: normal inspection, sclerae normal Respiratory/Chest: chest non-tender, lungs clear, normal breath sounds Cardiovascular: regular rate, rhythm, no edema, no gallop Abdomen: normal bowel sounds, non tender, soft Extremities: normal inspection, no calf tenderness, + pedal edema (+1 pedal edema) Neurologic/Psychiatric: alert, oriented x 3, + depressed affect Laboratory Results Results Past 24 Hours Test 07/18/17 05:17 Range/Units White Blood Count 12.72 4.8-10.8 K/uL Red Blood Count 5.32 4.2-5.4 M/uL Hemoglobin 15.7 12.0-16.0 g/dL Hematocrit 47.2 37-47 % Mean Corpuscular Volume 88.7 80-100 fL Mean Corpuscular Hemoglobin 29.5 25-34 pg Mean Corpuscular Hemoglobin Concent 33.3 32-36 g/dl Platelet Count 201 130-400 K/uL Mean Platelet Volume 10.8 7.4-10.4 fL Neutrophils (%) (Auto) 88.7 % Lymphocytes (%) (Auto) 7.9 % Monocytes (%) (Auto) 3.1 % Eosinophils (%) (Auto) 0.0 % Basophils (%) (Auto) 0.0 % Neutrophils # (Auto) 11.29 1.4-6.5 K/uL Lymphocytes # (Auto) 1.00 1.2-3.4 K/uL Monocytes # (Auto) 0.39 0.11-0.59 K/uL Eosinophils # (Auto) 0.00 0-0.5 K/uL Basophils # (Auto) 0.00 0-0.2 K/uL RDW Standard Deviation 45.5 36.4-46.3 fL RDW Coefficient of Variation 14.1 11.5-14.5 % Immature Granulocyte % (Auto) 0.3 % Immature Granulocyte # (Auto) 0.04 0.00-0.02 K/uL Prothrombin Time 11.4 9.0-12.0 SECONDS Prothromb Time International Ratio 1.1 0.9-1.1 Activated Partial Thromboplast Time 24.8 21.0-31.0 SECONDS Partial Thromboplastin Ratio 1.0 Sodium Level 141 136-145 mmol/L Potassium Level 3.9 3.5-5.1 mmol/L Chloride Level 103 98-107 mmol/L Carbon Dioxide Level 31 21-32 mmol/L Anion Gap 7.0 3-11 mmol/L Blood Urea Nitrogen 19 7-18 mg/dl Creatinine 0.99 0.60-1.20 mg/dl Est Creatinine Clear Calc Drug Dose 65.5 ml/min Estimated GFR () 67.4 Estimated GFR (Non- 58.1 BUN/Creatinine Ratio 18.9 10-20 Random Glucose 167 70-99 mg/dl Calcium Level 9.1 8.5-10.1 mg/dl Total Bilirubin 1.5 0.2-1 mg/dl Direct Bilirubin 0.2 0-0.2 mg/dl Aspartate Amino Transf (AST/SGOT) 5 15-37 U/L Alanine Aminotransferase (ALT/SGPT) 14 12-78 U/L Alkaline Phosphatase 66 45-117 U/L Total Protein 6.9 6.4-8.2 gm/dl Albumin 3.6 3.4-5.0 gm/dl Assessment and Plan Patient is a 67 year old female with a past medical history of mild obstructive pulmonary disease, HTN, paroxysmal atrial fibrillation, chronic pain, hyperlipidemia, hypothyroidism, LUBNA, GERD, and s/p Joseluis fundoplication 6 years ago that presents with a several week history of shortness of breath and cough 1) Acute Hypoxic Respiratory Failure - Possible COPD exacerbation vs Asthma vs Pulmonary Embolism - PFTs 2016- FVC of 80% of predicted, an FEV1 of 74% predicted, an FEV1 to FVC ratio of 74%, residual volume of 165% and a volume-adjusted DLCO of 121% --> mild obstructive change with reversibility with a reduced non-volume adjusted diffusion capacity - IV Methylprednisolone 60mg --> Change from q8h to q12h due to nausea - Change to PO steroids tomorrow --> 40mg PO and taper by 10mg every 2 days - Discontinued Levaquin 500mg IV --> Vomited after both IV and PO dosing - Xopenex / Ipratropium [place] q4h - Supplemental oxygen to maintain saturation >90% - Hold home combivent for time being - Patient on home Dulera that is not in Pharmacy Formulary --> Currently getting Xopenex / Ipratropium with steroid but encourage patient to have someone bring from home - CTA for PE 07/17 - No acute findings - 2 Step tomorrow morning 2) Nausea - Chronic since Joseluis Fundoplication 6 years ago - Zofran 4mg IV PRN - 1 dose this morning and still nauseous - Phenergan 30mg IV q6h scheduled --> On Phenergan at home 3) Paroxysmal Atrial Fibrillation - EKG: Currently in NSR - Tele: Run of Afib at 10:15 - On Sotalol 80mg BID - Obtain cardiology records --> Followed by Dr. Vitale - Currently not anticoagulated 4) Lower Extremity Edema - Discontinue Lasix - Says she take home dose (60mg) once per week - Refuse dose this morning because it makes her urinate too frequently 5) Hyperlipidemia - Zocor 6) GERD - Protonix 7) Chronic Pain - Gabapentin - Pepcid 8) DVT - Lovenox 9) Hepatitis C - Hep C Ab screen preliminarily positive - Quanitative RnA confirmatory test ordered - LFTs - Mildly elevated T-bili (1.5), other AST, ALT, and Alk Phos wnl 10) Code Status - Full Resuscitation 11) Disposition - Remain on Tele due to run of Afib - Plan to discharge tomorrow Reviewed: Pt Seen/Exam by Me History Resident Physician Supervision Note: I interviewed and examined the patient. Discussed with Dr. Izaguirre and agree with findings and plan as documented in the note. Any exceptions or clarifications are listed here: Patient again felt very nauseous today after receiving IV Levaquin. This was stopped. I discussed the case with the pulmonology PA. Brief run of A. fib for a few seconds to the 160s. We still have not received the requested cardiology records for review. Telemetry and vitals reviewed Obese, appears in mild distress, lying in bed on her side. Regular rate and rhythm, no murmurs gallops rubs Lungs clear to auscultation today, with mildly prolonged expiratory phase Abdomen obese positive bowel sounds soft nontender Extremities no edema Skin no rashes Echo: Normal left ventricular systolic function. Class 1 left ventricular diastolic dysfunction. Mild left atrial dilatation. Mild right ventricular dilatation. Moderately reduced right ventricular systolic function. Trace pulmonic regurgitation. Trace mitral regurgitation. Mild tricuspid regurgitation. Moderately elevated estimated right ventricular systolic pressure. -- Conclusions -- Aortic valve sclerosis mild, without significant aortic valvular stenosis 67-year-old female with acute hypoxemic respiratory failure and what appears to be asthma with possible mixed picture with COPD and decreased DLCO on recent PFTs. Also with paroxysmal atrial fibrillation on sotalol but no anticoagulation. Echo with suspicion of pulmonary hypertension and right-sided heart failure. CT angiogram poor quality but negative for large PE. Appreciate pulmonary consult -Continue nebulizers and supplemental oxygen-we'll perform two-step test tomorrow and taper steroids, discontinue Levaquin due to nausea, other choices include doxycycline which makes her also very nauseous, azithromycin which could also prolong the QT in conjunction with sotalol, and she is allergic to penicillins-she is not producing any sputum and I'm reluctant to restart her on any further antibiotic coverage at this time as this seems more of an asthma picture rather than a severe COPD exacerbation -Still awaiting cardiology records for more information on her atrial fibrillation, question if she should be on anticoagulation? [id number] score is 3 = 3.2% CVA risk per year--> should be on anticoagulation, however it is unclear what what her A. fib burden as is a don't have the records. -We'll consult cardiology for further evaluation Documented By: Rajni Haro
--- NOTE | 2017-07-18 18:45 | ECHOCARDIOGRAM REPORT ---
*NOTICE TO RECEIVING LIBERTARIAN AGENCY This information is strictly Confidential and protected under [place] law. [place] law prohibits you from making any further disclosure of this information unless further disclosure is expressly permitted by the written consent of the person to whom it pertains or is authorized by law. A general authorization for the release of medical or other information is not sufficient for this purpose. Hospital accepts no responsibility if the information is made available to any other person, INCLUDING THE PATIENT. Interpretation Summary * Name: CAROL QUIJANO Study Date: 07/18/2017 07:41 AM BP: 154/87 mmHg * Patient Location: C.2T\S\E217\S\1 HR: 69 * : 1950 (M/d/yyyy) Gender: Female Height: 64 in * Age: 67 yrs Ethnicity: CA Weight: 245 lb * Ordering Physician: Shelley Contreras * Referring Physician: Jevon Ford * Performed By: Jesusita Rodrigez RCS * * Reason For Study: Pulmonary HTN * BSA: 2.1 m2 * Normal left ventricular systolic function. * Class 1 left ventricular diastolic dysfunction. * Mild left atrial dilatation. * Mild right ventricular dilatation. Moderately reduced right ventricular systolic function. * Trace pulmonic regurgitation. * Trace mitral regurgitation. * Mild tricuspid regurgitation. * Moderately elevated estimated right ventricular systolic pressure. * -- Conclusions -- * Aortic valve sclerosis mild, without significant aortic valvular stenosis. Procedure Details * A complete two-dimensional transthoracic echocardiogram was performed (2D, M-mode, Doppler and color flow Doppler). * There were technical limitations due to patient'sbody habitus * A contrast injection of Definity was performed to improve assessment of LV function. * Contrast was injected into an intravenous site in the left arm. * One vial of Definity ultrasound contrast was diluted in normal saline to a total volume of 10 ml. A total of '2' ml of solution was administered during imaging. * Lot # [id number] of Definity utilized for procedure. * Expiration date . * The attending nurse who injected the contrast agent was Al Miller RN. Left Ventricle * The left ventricle is normal in size. * There is normal left ventricular wall thickness. * Ejection Fraction = 65-70%. * Left ventricular systolic function is normal. * A full diastolic examination was done with clinical findings of Class I diastolic dysfunction. * The left ventricular wall motion is normal. Right Ventricle * The right ventricle is not well visualized. * The right ventricle is mildly dilated. * The right ventricular systolic function is reduced as assessed by tricuspid annular plane systolic excursion (TAPSE) (TAPSE <1.6 cm). * The right ventricular systolic function is moderately reduced. Atria * The left atrium is mildly dilated. * Right atrium not well visualized. * The right atrium is mildly dilated. Mitral Valve * The mitral valve is not well visualized. * There is no mitral valve stenosis. * There is trace mitral regurgitation. Tricuspid Valve * The tricuspid valve is not well visualized. * There is no tricuspid stenosis. * Right ventricular systolic pressure is elevated at 50-60mmHg. * There is mild tricuspid regurgitation. Aortic Valve * The aortic valve is trileaflet. * Aortic valve sclerosis mild, without significant aortic valvular stenosis. * There is no significant aortic regurgitation. Pulmonic Valve * The pulmonic valve is not well visualized. * The pulmonary valve is inadequately visualized, but the Doppler data is adequate for interpretation. * There is no pulmonic valvular stenosis. * Trace pulmonic valvular regurgitation. Pericardium/Pleural * There is no pericardial effusion. MMode 2D Measurements and Calculations IVSd 1.1 cm IVSs 1.3 cm LVIDd 4.5 cm LVIDs 3.0 cm LVPWd 1.1 cm LVPWs 1.3 cm IVS/LVPW 1.1 FS 33.3 % EDV(Teich) 93.5 ml ESV(Teich) 35.5 ml EF(Teich) 62.0 % EDV(cubed) 92.5 ml ESV(cubed) 27.5 ml EF(cubed) 70.3 % % IVS thick 18.0 % % LVPW thick 26.6 % LV mass(C)d 174.7 grams LV mass(C)dI 81.9 grams/m\S\2 LV mass(C)s 130.8 grams LV mass(C)sI 61.3 grams/m\S\2 CO(Teich) 4.4 l/min CI(Teich) 2.0 l/min/m\S\2 SV(Teich) 58.0 ml SI(Teich) 27.2 ml/m\S\2 CO(cubed) 4.9 l/min CI(cubed) 2.3 l/min/m\S\2 SV(cubed) 65.0 ml SI(cubed) 30.5 ml/m\S\2 Ao root diam 3.8 cm Ao root area 11.5 cm\S\2 ACS 2.1 cm LA dimension 4.1 cm asc Aorta Diam 3.5 cm LA/Ao 1.1 LVAd ap4 25.3 cm\S\2 LVLd ap4 7.7 cm EDV(MOD-sp4) 69.0 ml LVAs ap4 12.7 cm\S\2 LVLs ap4 6.1 cm ESV(MOD-sp4) 23.0 ml EF(MOD-sp4) 66.7 % LVAd ap2 20.2 cm\S\2 LVLd ap2 6.7 cm EDV(MOD-sp2) 51.0 ml LVAs ap2 10.1 cm\S\2 LVLs ap2 5.7 cm ESV(MOD-sp2) 15.0 ml EF(MOD-sp2) 70.6 % CO(MOD-sp4) 3.5 l/min CI(MOD-sp4) 1.6 l/min/m\S\2 SV(MOD-sp4) 46.0 ml SI(MOD-sp4) 21.6 ml/m\S\2 CO(MOD-sp2) 2.7 l/min CI(MOD-sp2) 1.3 l/min/m\S\2 SV(MOD-sp2) 36.0 ml SI(MOD-sp2) 16.9 ml/m\S\2 Doppler Measurements and Calculations MV E max margarette 46.9 cm/sec MV A max margarette 63.9 cm/sec MV E/A 0.73 MV P1/2t max margarette 58.4 cm/sec MV P1/2t 58.2 msec MVA(P1/2t) 3.8 cm\S\2 MV dec slope 294.0 cm/sec\S\2 MV dec time 0.28 sec Ao V2 max 118.8 cm/sec Ao max PG 5.6 mmHg Ao max PG (full) 1.5 mmHg LV V1 max PG 4.1 mmHg LV V1 max 101.7 cm/sec PA V2 max 78.7 cm/sec PA max PG 2.5 mmHg PI max margarette 218.5 cm/sec PI max PG 19.1 mmHg PI dec slope 191.0 cm/sec\S\2 PI P1/2t 335.2 msec TR max margarette 350.4 cm/sec
[2017-07-18] MEDS: ENOXAPARIN 40 MG/0.4 ML SYR SQ SCH (20:42)
[2017-07-18] MEDS: SIMVASTATIN 20 MG TAB PO SCH (20:43)
[2017-07-18] MEDS ORDERED: METHYLPREDNISOLONE IV 40 MG in SYRINGE 0 ML IV SCH (21:00)
[2017-07-18] MEDS ORDERED: METHYLPREDNISOLONE IV 40 MG in SYRINGE 0 ML IV ONE (21:00)
[2017-07-19] VITALS (8 sets, daily range): BP systolic 114–163; BP diastolic 64–79; PULSE 56–79; TEMP 36.5–37.3; O2SAT 90–97
[2017-07-19] MEDS: LEVALBUTEROL 0.63MG/3 ML NEB INH SCH ×4 (01:53→18:59)
[2017-07-19] MEDS: IPRATROPIUM BROMIDE NEB SOLN 0.02% 2.5 ML VIAL INH SCH ×4 (01:53→18:58)
[2017-07-19] MEDS: ALPRAZOLAM 0.5 MG TAB PO PRN ×3 (03:35→20:17)
[2017-07-19] MEDS: OXYCODONE/ACETAMINOPHEN 5-325 TAB PO PRN ×3 (03:35→20:17)
[2017-07-19] MEDS: LEVOTHYROXINE 50 MCG TAB PO SCH (05:59)
[2017-07-19] MEDS: PANTOprazole SOD 40 MG TAB PO SCH (07:59)
[2017-07-19] MEDS: SOTALOL HCL 80 MG TAB PO SCH ×2 (08:00→20:16)
[2017-07-19] MEDS: DULERA~ORDER AWAITING ACTION SCH ×3 (08:00→15:15)
[2017-07-19] MEDS: GABAPENTIN 300 MG CAP PO SCH ×4 (08:01→20:17)
[2017-07-19] MEDS: FAMOTIDINE 20 MG TAB PO SCH (08:01)
--- NOTE | 2017-07-19 12:51 | Pulmonology Progress Note ---
Pulmonary Progress Note Date of Service Jul 19, 2017. Attending Dr. Contreras Subjective Patient seen and examined. She states that her breathing is much better. She feels less short of breath on exertion. She denies dyspnea at rest. She is concerned that she might have LARA. Objective VS reviewed Gen: She looks ill, AAOx3, no respiratory distress noted CVS: S1, S2, RRR Lungs: bilateral sporadic wheezing throughout lung jackson Abd: obese, NT/ND, BS+ Ext: no cyanosis, no clubbing, bilateral peripheral edema Labs reviewed Imaging reviewed TTE 07/19/2017 * Normal left ventricular systolic function. * Class 1 left ventricular diastolic dysfunction. * Mild left atrial dilatation. * Mild right ventricular dilatation. Moderately reduced right ventricular systolic function. * Trace pulmonic regurgitation. * Trace mitral regurgitation. * Mild tricuspid regurgitation. * Moderately elevated estimated right ventricular systolic pressure. * Aortic valve sclerosis mild, without significant aortic valvular stenosis. EKG 07/16/2017 Normal sinus rhythm Low voltage QRS ST & T wave abnormality, consider anterior ischemia CT chest 07/17/2017 IMPRESSION: 1. No evidence of central pulmonary embolus. The study is suboptimal, degraded by extensive respiratory motion artifact limiting diagnostic sensitivity. No convincing evidence of acute intrathoracic pathology. Minimal right basilar atelectasis or scarring. 2. Allowing for limited image quality, no significant emphysematous changes. CXR: 07/17/2017 FINDINGS: Atherosclerosis of aortic arch. Cardiac silhouette within normal limits. Bibasilar bandlike opacities. No pleural effusion or pneumothorax. Osseous structures normal. Upper abdomen normal. IMPRESSION: 1. Bibasilar atelectasis suspected. No other evidence of acute cardiopulmonary disease. Assessment & Plan ACOS with exacerbation Hypoxia Patient appears to have components of both asthma and COPD, this suggest an overlap syndrome. CT chest is negative for PE, however the main pulmonary artery is mildly enlarged with reflux into the hepatic veins suggestive of elevated right heart pressures. TTE is consistent with diastolic dysfunction and elevated pulmonary artery pressures. This may be secondary to obesity hypoventilation syndrome or LARA. We can do an overnight oximetry to evaluate for desaturations. She should have polysomnography as an outpatient as she does endorse awakening from sleeps with dyspnea. Continue with supplemental oxygen therapy to maintain SaO2 btw 88-92%. Taper oxygen as tolerated. Continue with albuterol/ipratropium q6h prn, Continue with antibiotics, steroid taper. Now refusing lasix. Prior to discharge she should have a 2 step to evaluate for oxygen therapy. She should follow up with [facility] in 1-2 weeks, post hospital discharge. Will sign off today. Please reconsult if you have any other questions or concerns. Data Medications: Current Inpatient Medications Medications (Trade) Dose Ordered Sig/Juliane Route Start Time Stop Time Status Last Admin Dose Admin Acetaminophen (Tylenol Tab) 650 mg Q4H PRN PO 07/16/17 21:30 08/15/17 21:29 07/18/17 21:08 650 MG Magnesium Hydroxide (Milk Of Magnesia Susp) 30 ml Q12H PRN PO 07/16/17 21:30 08/15/17 21:29 Polyethylene (Miralax Powder Packet) 17 gm DAILY PRN PO 07/16/17 21:30 08/15/17 21:29 Alprazolam (Xanax Tab) 0.25 mg Q8H PRN PO 07/16/17 21:30 08/15/17 21:29 07/19/17 11:16 0.25 MG Famotidine (Pepcid Tab) 40 mg DAILY PO 07/17/17 09:00 08/16/17 08:59 07/19/17 08:01 40 MG Gabapentin (Neurontin Cap) 600 mg QID PO 07/17/17 09:00 08/16/17 08:59 07/19/17 08:01 600 MG Levothyroxine Sodium (Synthroid Tab) 50 mcg DAILYBB PO 07/17/17 06:00 08/16/17 05:59 07/19/17 05:59 50 MCG Simvastatin (Zocor Tab) 20 mg QPM PO 07/17/17 21:00 08/16/17 20:59 07/18/17 20:43 20 MG Sotalol HCl (Betapace Tab) 80 mg BID PO 07/17/17 09:00 08/16/17 08:59 07/19/17 08:00 80 MG Albuterol (Ventolin Hfa Inhaler) 2 puffs Q4H PRN INH 07/16/17 22:00 08/15/17 21:59 Pantoprazole Sodium (Protonix Tab) 40 mg QAM PO 07/17/17 09:00 08/16/17 08:59 07/19/17 07:59 40 MG Miscellaneous Information (Order Awaiting Action) 1 ea QS N/A 07/16/17 22:00 08/15/17 21:59 Oxycodone/ Acetaminophen (Percocet 5-325mg Tab) 1 tab Q6H PRN PO 07/17/17 01:30 07/31/17 01:29 07/19/17 11:16 1 TAB Ioversol (Optiray 320) 100 ml UD PRN IV 07/17/17 08:30 07/21/17 08:29 Promethazine HCl 25 mg/Sodium Chloride 51 ml @ 204 mls/hr Q6H PRN IV 07/17/17 14:30 08/16/17 14:29 07/18/17 13:23 204 MLS/HR Enoxaparin Sodium (Lovenox Inj) 40 mg Q24H SQ 07/17/17 21:00 08/16/17 20:59 07/18/17 20:42 40 MG Ipratropium [place] (Atrovent 0.02% 0.5MG/2.5ML Neb) 0.5 mg Q6R INH 07/18/17 03:00 08/17/17 02:59 07/19/17 07:15 0.5 MG Levalbuterol (Xopenex 0.63 Mg/ 3 Ml Neb) 0.63 mg Q6R INH 07/18/17 03:00 08/17/17 02:59 07/19/17 07:15 0.63 MG Prednisone (PredniSONE TAB) 40 mg QAM PO 07/19/17 09:00 08/18/17 08:59 07/19/17 08:00 40 MG Vital Signs: Date Time Temp Pulse Resp B/P (MAP) Pulse Ox O2 Delivery O2 Flow Rate FiO2 07/19/17 12:00 Nasal Cannula 3.0 07/19/17 11:13 36.5 79 18 139/71 (93) 97 07/19/17 08:03 36.8 64 18 138/64 (88) 96 07/19/17 08:00 Nasal Cannula 3.0 07/19/17 07:15 62 14 93 Nasal Cannula 3.0 07/19/17 04:00 Oxymask 3.0 07/19/17 03:11 36.5 75 20 163/79 (107) 96 Oxymask 3.0 07/18/17 23:59 Oxymask 3.0 07/18/17 23:36 36.9 67 20 111/70 (84) 92 Nasal Cannula 3.0 07/18/17 20:00 Nasal Cannula 3.0 07/18/17 19:21 37.2 67 16 112/64 (80) 95 Nasal Cannula 3.0 07/18/17 19:19 64 14 94 Nasal Cannula 3.0 07/18/17 16:00 Room Air 07/18/17 15:56 36.9 66 20 106/67 (80) 96 Nasal Cannula 3.0 07/18/17 13:55 67 16 91 Nasal Cannula 3.0
[2017-07-19] MEDS ORDERED: RIVA1TAB4 PO (16:34)
--- NOTE | 2017-07-19 17:40 | Family Medicine Progress Note ---
Progress Note Date of Service Jul 19, 2017. Subjective Pt evaluation today including: conversation w/ patient, physical exam, chart review, conversation w/ environmental remediation consultant, review of inpatient medication list Pain: none Voiding: no voiding problems Patient still feeling short of breath at night She is feeling very anxious and rates her anxiety as a 5/10 Of note she worked in an [employer] for 10 years and was exposed to asbestos when she was young Denies any cough, chest pain, or fevers Constitutional: No fever, No chills, No sweats Respiratory: + shortness of breath, + dyspnea on exertion, No cough, No sputum, No wheezing Cardiovascular: No chest pain, No edema, No palpitations Abdomen: No pain, No nausea, No vomiting Psychiatric: + anxiety Skin: No rash, No itch, No new/changing skin lesions Medications Meds Administered (Past 24Hrs) Medications (Trade) Dose Ordered Sig/Juliane Route Start Time Stop Time Status Last Admin Dose Admin Simvastatin (Zocor Tab) 20 mg QPM PO 07/17/17 21:00 08/16/17 20:59 07/18/17 20:43 20 MG Levofloxacin 500 mg/Prmx 100 ml @ 100 mls/hr DAILY@1100 IV 07/18/17 11:00 07/18/17 15:32 DC 07/18/17 12:01 100 MLS/HR Methylprednisolone Sodium Succinate 60 mg/Syringe 0.96 ml @ 1.5 mls/min Q8H IV 07/18/17 00:00 07/18/17 10:20 DC 07/18/17 08:18 1.5 MLS/MIN Enoxaparin Sodium (Lovenox Inj) 40 mg Q24H SQ 07/17/17 21:00 08/16/17 20:59 07/18/17 20:42 40 MG Ipratropium Calvin (Atrovent 0.02% 0.5MG/2.5ML Neb) 0.5 mg Q6R INH 07/18/17 03:00 08/17/17 02:59 07/19/17 14:30 0.5 MG Levalbuterol (Xopenex 0.63 Mg/ 3 Ml Neb) 0.63 mg Q6R INH 07/18/17 03:00 08/17/17 02:59 07/19/17 14:30 0.63 MG Methylprednisolone Sodium Succinate 40 mg/Syringe 0.64 ml @ 1.5 mls/min ONE ONCE IV 07/18/17 21:00 07/18/17 21:01 DC 07/18/17 21:05 1.5 MLS/MIN Prednisone (PredniSONE TAB) 40 mg QAM PO 07/19/17 09:00 08/18/17 08:59 07/19/17 08:00 40 MG Objective Vital Signs Date Time Temp Pulse Resp B/P (MAP) Pulse Ox O2 Delivery O2 Flow Rate FiO2 07/19/17 16:11 37.1 56 22 118/76 (90) 92 Nasal Cannula 3.0 07/19/17 16:00 Nasal Cannula 3.0 07/19/17 14:38 59 14 94 Nasal Cannula 3.0 07/19/17 12:00 Nasal Cannula 3.0 07/19/17 11:13 36.5 79 18 139/71 (93) 97 07/19/17 08:03 36.8 64 18 138/64 (88) 96 07/19/17 08:00 Nasal Cannula 3.0 07/19/17 07:15 62 14 93 Nasal Cannula 3.0 07/19/17 04:00 Oxymask 3.0 07/19/17 03:11 36.5 75 20 163/79 (107) 96 Oxymask 3.0 07/18/17 23:59 Oxymask 3.0 07/18/17 23:36 36.9 67 20 111/70 (84) 92 Nasal Cannula 3.0 07/18/17 20:00 Nasal Cannula 3.0 07/18/17 19:21 37.2 67 16 112/64 (80) 95 Nasal Cannula 3.0 07/18/17 19:19 64 14 94 Nasal Cannula 3.0 Physical Exam General Appearance: WD/WN, + mild distress, + pertinent finding (patient under blacket and lips are quivering and appears anxious) Respiratory/Chest: lungs clear, no respiratory distress, no accessory muscle use Cardiovascular: regular rate, rhythm, no JVD, no murmur Abdomen: normal bowel sounds, non tender, soft Extremities: non-tender, no pedal edema, no calf tenderness, normal capillary refill Skin: normal color, warm/dry, no rash Assessment and Plan Patient is a 67 year old female with a past medical history of mild obstructive pulmonary disease, HTN, paroxysmal atrial fibrillation, chronic pain, hyperlipidemia, hypothyroidism, LUBNA, GERD, and s/p Joseluis fundoplication 6 years ago that presents with a several week history of shortness of breath and cough 1) Acute Hypoxic Respiratory Failure - Possible COPD exacerbation vs Asthma vs Pulmonary Embolism - PFTs 2016- FVC of 80% of predicted, an FEV1 of 74% predicted, an FEV1 to FVC ratio of 74%, residual volume of 165% and a volume-adjusted DLCO of 121% --> mild obstructive change with reversibility with a reduced non-volume adjusted diffusion capacity - IV Methylprednisolone 60mg --> switched to PO with taper - Xopenex / Ipratropium Calvin q4h - Supplemental oxygen to maintain saturation >90% - Hold home combivent for time being - Patient on home Dulera that is not in Pharmacy Formulary --> Currently getting Xopenex / Ipratropium with steroid but encourage patient to have someone bring from home - CTA for PE 07/17 - No acute findings - 2 Step tomorrow morning - Pulmonology consult- ordered overnight oximetry to assess for obesity hypoventilation syndrome and LARA - Patient with elevated Right sided heart pressures on echo - cardiac consult ordered for afib management of possibility to do right heart cath to assess right sided pressures 2) Nausea - Chronic since Joseluis Fundoplication 6 years ago - Zofran stopped due to interaction with sotalol for possible prolonged QT - Phenergan 30mg IV q6h scheduled --> On Phenergan at home 3) Paroxysmal Atrial Fibrillation - EKG: Currently in NSR - Tele: No A.fib overnight - On Sotalol 80mg BID - Obtain cardiology records --> Followed by Dr. Vitale - [facility] of 3 - Patient would benefit from anticoagulation and would want to start xarelto - order put to case management to check with insurance 4) Lower Extremity Edema - Start lasix 20mg OD - Says she take home dose (60mg) once per week 5) Hyperlipidemia - Zocor 6) GERD - Protonix - pepcid 7) Chronic Pain - Gabapentin 8) DVT - Lovenox 9) Hepatitis C - Hep C Ab screen preliminarily positive - Quanitative RnA confirmatory test ordered 10) Code Status - Full Resuscitation 11) Disposition - Remain on Tele due to run of Afib two night ago FULL CODE Continued [facility] stay due to: multiple IV medications needed Reviewed: Pt Seen/Exam by Me History Resident Physician Supervision Note: I interviewed and examined the patient. Discussed with Dr. Izaguirre and agree with findings and plan as documented in the note. Any exceptions or clarifications are listed here: Pt feeling better today, no more nausea. Breathing is better. Discussed anticoagulation with Xarelto, risks/benefits/alternatives of AC vs none for PAF. She is willing to start lasix 20mg daily for her right sided heart failure Telemetry and vitals reviewed Obese, appears in mild distress, lying in bed on her side. Regular rate and rhythm, no murmurs gallops rubs Lungs with faint crackles at bases Abdomen obese positive bowel sounds soft nontender Extremities no edema Skin no rashes Echo: Normal left ventricular systolic function. Class 1 left ventricular diastolic dysfunction. Mild left atrial dilatation. Mild right ventricular dilatation. Moderately reduced right ventricular systolic function. Trace pulmonic regurgitation. Trace mitral regurgitation. Mild tricuspid regurgitation. Moderately elevated estimated right ventricular systolic pressure. -- Conclusions -- Aortic valve sclerosis mild, without significant aortic valvular stenosis 67-year-old female with acute hypoxemic respiratory failure and what appears to be asthma with possible mixed picture with COPD and decreased DLCO on recent PFTs. Also with paroxysmal atrial fibrillation on sotalol but no anticoagulation. Echo with suspicion of pulmonary hypertension and right-sided heart failure. CT angiogram poor quality but negative for large PE. Appreciate pulmonary consult Appreciate Cardiolgoy consultation -Continue nebulizers and supplemental oxygen-we'll perform two-step test prior to dc and taper steroids, discontinued Levaquin due to nausea, other choices include doxycycline which makes her also very nauseous, azithromycin which could also prolong the QT in conjunction with sotalol, and she is allergic to penicillins-she is not producing any sputum and I'm reluctant to restart her on any further antibiotic coverage at this time as this seems more of an asthma picture rather than a severe COPD exacerbation -Still awaiting cardiology records for more information on her atrial fibrillation, but she should be on anticoagulation. [id number] score is 3 = 3.2 % CVA risk per year--> pt not interested in coumadin but willing to use Xarelto if cost affordable--> CM to álvarez -Overnight oximetry tonight and consider RHC for dx of PHTN--> can f/u with Cardio as outpt for this -start lasix 20mg daily Documented By: Rajni Haro
[2017-07-19] MEDS: SIMVASTATIN 20 MG TAB PO SCH (20:16)
[2017-07-19] MEDS: ENOXAPARIN 40 MG/0.4 ML SYR SQ SCH (20:17)
--- NOTE | 2017-07-19 22:35 | CARDIOLOGY CONSULTATION ---
DATE OF CONSULTATION: 07/19/2017 PERTINENT HISTORY: Mrs. Navarro is a 67-year-old white female admitted on 07/16/2017 with exacerbation of her COPD. The patient has shown several paroxysms of atrial fibrillation, and therefore, this consultation was ordered. Of note, the patient typically follows with Dr. Vitale in [place]. The patient was in her usual state of health until approximately 1 week prior to presentation when she began to note progressive exertional dyspnea and a cough productive of yellowish sputum. She was seen in her primary care physician's office on the day of presentation and noted to be hypoxic with a saturation of 85%. Hospitalization was recommended. The patient has improved with typical treatment for COPD exacerbation. She has shown 3 brief episodes of atrial fibrillation on the monitor. According to her history, she was diagnosed with paroxysmal atrial fibrillation approximately 1 year ago. She was placed on sotalol by Dr. Vitale. She is on no beta blockade nor long-term anticoagulant. We have discussed the role of long-term anticoagulation given her diagnosis and numerous comorbidities. Currently, the patient is resting comfortably in bed without complaints. She notes no palpitations at the time of her atrial fibrillation. PAST MEDICAL HISTORY: 1. Hypertension. 2. Paroxysmal atrial fibrillation. 3. Status post hiatal hernia repair. 4. COPD. 5. Hypothyroidism. 6. History of Lyme disease. 7. Fibromyalgia syndrome. 8. Generalized anxiety. MEDICATIONS: 1. Sotalol 80 mg b.i.d. 2. Simvastatin 20 mg at bedtime. 3. Lovenox 40 mg subcu daily. 4. Prednisone 40 mg per day. 5. Atrovent nebulizer q. 6 hours. 6. Xopenex nebulizer q. 6 hours. 7. Pepcid 40 mg daily. 8. Neurontin 600 mg q.i.d. 9. Protonix 40 mg per day. ALLERGIES: PENICILLIN. SOCIAL HISTORY: The patient lives alone. 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 Does not smoke cigarettes but has a long history of secondhand smoke with her parents and her first . Does not use alcohol. FAMILY HISTORY: Mother at age 72 from an SD. Father at age 80 from a CVA. REVIEW OF SYSTEMS: A 10-point review of systems was negative except for that described above. PHYSICAL EXAMINATION: GENERAL: This is an obese white female lying supine in bed without complaints. VITAL SIGNS: Blood pressure is 138/64 with a regular pulse of 64. Respiratory rate is 18 and the patient is afebrile at 36.8 degrees Celsius. Saturation is 96% on 3 liters nasal cannula. HEENT: Negative. NECK: Supple with full carotid upstrokes. There are no carotid bruits. Jugular venous pressure is flat at 90 degrees. There is no thyromegaly. CARDIOVASCULAR: Reveals a regular rhythm with normal S1 and S2. No S3, S4 or murmurs are noted. LUNGS: Clear without rales, rhonchi or wheezes. ABDOMEN: Obese without bruits. EXTREMITIES: Reveal intact radial artery pulses bilaterally. Trace pretibial edema is noted. DATA: CBC notes hemoglobin of 15.7, hematocrit 47.2, white count 12.7, platelet count 201,000. Electrolytes note sodium of 141, potassium 3.9, chloride 103, bicarb 31, BUN 19, creatinine 0.99 and glucose of 167. Two troponin I levels are undetectable at less than 0.015. INR is 1.1. campus monitor noted 3 brief paroxysms of atrial fibrillation during her hospitalization. IMPRESSION: Mrs. Navarro was admitted with a flare of her chronic obstructive pulmonary disease. She was diagnosed with paroxysmal atrial fibrillation approximately 1 year ago and has been treated with sotalol since that time. We have discussed the importance of long-term anticoagulation. She is not interested in Coumadin and would prefer a once-daily medication such as Xarelto. This would be recommended as her CHADS score is elevated at at least 2. PLAN: 1. Continue usual cardiac medications. 2. Would initiate Xarelto 20 mg daily and continue indefinitely. 3. Further recommendations depending on her clinical course.
[2017-07-20] VITALS (8 sets, daily range): BP systolic 107–141; BP diastolic 70–76; PULSE 51–59; TEMP 36.8–37.3; O2SAT 93–97
[2017-07-20] MEDS: LEVALBUTEROL 0.63MG/3 ML NEB INH SCH ×3 (01:44→13:33)
[2017-07-20] MEDS: IPRATROPIUM BROMIDE NEB SOLN 0.02% 2.5 ML VIAL INH SCH ×3 (01:44→13:33)
[2017-07-20] MEDS: LEVOTHYROXINE 50 MCG TAB PO SCH (05:51)
[2017-07-20 06:16] LABS: HEMATOCRIT 46.9 % (37-47); MEAN CELL VOLUME 90.2 fL (80-100); MEAN CORPUSCULAR HEMOGLOBIN 28.7 pg (25-34); MEAN CORPUSCULAR HGB CONC 31.8 g/dl (32-36); MEAN PLATELET VOLUME 11.2 fL (7.4-10.4); PLATELET COUNT 178 K/uL (130-400); WHITE BLOOD COUNT 11.26 K/uL (4.8-10.8)
[2017-07-20 07:03] LABS: BUN/CREATININE RATIO 30.3 (10-20); CALCIUM 8.8 mg/dl (8.5-10.1); CREATININE 0.94 mg/dl (0.60-1.20); POTASSIUM 3.8 mmol/L (3.5-5.1)
[2017-07-20] MEDS: DULERA~ORDER AWAITING ACTION SCH ×3 (07:12→15:52)
[2017-07-20] MEDS: FAMOTIDINE 20 MG TAB PO SCH (08:50)
[2017-07-20] MEDS: PANTOprazole SOD 40 MG TAB PO SCH (08:50)
[2017-07-20] MEDS: GABAPENTIN 300 MG CAP PO SCH ×3 (08:50→17:11)
[2017-07-20] MEDS: SOTALOL HCL 80 MG TAB PO SCH (08:50)
[2017-07-20] MEDS: OXYCODONE/ACETAMINOPHEN 5-325 TAB PO PRN ×2 (08:51→17:11)
[2017-07-20] MEDS: ALPRAZOLAM 0.5 MG TAB PO PRN ×2 (08:51→17:12)
[2017-07-20] MEDS ORDERED: FUROSEMIDE 20 MG TAB PO SCH (09:00)
--- NOTE | 2017-07-20 12:05 | CARDIOLOGY PROGRESS NOTE ---
DATE: 07/20/2017 SUBJECTIVE: Mrs. Navarro is resting comfortably at the bedside without complaints of chest pain, dyspnea, or palpitations. OBJECTIVE: VITAL SIGNS: Blood pressure is 118/71 with a regular pulse of 55. Respiratory rate is 18 and the patient is afebrile at 37.3 degrees Celsius. Saturations 95% on 3 liters nasal cannula. NECK: Supple with full carotid upstrokes. There are no carotid bruits. Jugular venous pressure is flat at 90 degrees. There is no thyromegaly. CARDIOVASCULAR: Reveals a regular rhythm with a normal S1 and S2. Heart sounds are distant. No obvious murmurs. LUNGS: Clear without rales, rhonchi, or wheezes. ABDOMEN: Obese without bruits. EXTREMITIES: Reveal intact radial artery pulses bilaterally. Trace pretibial edema is noted. DATA: CBC notes hemoglobin 14.9, hematocrit 46.9, white count 11.2, platelet count 178,000. Electrolytes note a sodium of 142, potassium 3.8, chloride 103, bicarbonate 34, BUN 29, creatinine 0.9, glucose 132. teletypesetter monitor notes an occasional PAC, but no further atrial fibrillation. IMPRESSION AND PLAN: 1. Paroxysmal atrial fibrillation -- patient is stable on sotalol with infrequent and brief episodes of atrial fibrillation. As before, would recommend starting long-term anticoagulation as her CHADS score is elevated at 2. She will continue to follow up with Dr. Vitale in [place]. 2. Hypertension -- controlled. 3. Hypercholesterolemia -- continue statin. 4. Disposition -- stable for hospital discharge from a cardiac perspective.
[2017-07-20 14:27] LABS: HEPATITIS C RNA TMA QUAL Not detected
[2017-07-20] MEDS ORDERED: PRED10TA PO (14:50)
[2017-07-20] MEDS ORDERED: LSX20 PO (14:50)
--- NOTE | 2017-07-20 14:55 | Discharge Instructions ---
Discharge Instructions Date of Service Jul 20, 2017. Admission Reason for Admission: Copd Exacerbation Discharge Discharge Diagnosis / Problem: Shortness of breath Discharge Goals Goal(s): Improve function, Increase independence, Diagnostic testing Activity Recommendations Activity Limitations: per Instructions/Follow-up section . Instructions / Follow-Up Instructions / Follow-Up You will be going home with 3L of oxygen to use with exertion as you have been found to have low oxygen levels when exerting yourself We have sent prescriptions to [facility] in [facility] for prednisone and lasix, as well as a refill of your promethazine as needed for nausea. Please take these as prescribed. We have also written you a script for Xarelto which you can take with you to the pharmacy along with the coupon savings card to see if they will fill it for you. If not then please follow up with your PCP to help you get authorization of the medication through insurance. We will need you to make an appointment with Dr. Vitale (your Gear Inspector) in order to discuss further management of your shortness of breath and see if you need a right heart catheterization. If you experience any worsening shortness of breath, chest pain, palpitations or cough then please come back to the emergency department. Your Hepatitis C screening test was positive. The confirmatory test is still pending and your primary care doctor can follow up on this result. Current Hospital Diet Patient's current hospital diet: Regular Diet Discharge Diet Recommended Diet: Low Sodium Diet (2gm Na) Fluid Restriction: 1800 ml (7 cups) Procedures Procedures Performed: ECHO Chest CT Chest xray Pending Studies Studies pending at discharge: yes List of pending studies: Quanitative RnA for Hep C Medical Emergencies . Who to Call and When: Medical Emergencies: If at any time you feel your situation is an emergency, please call 911 immediately. . Non-Emergent Contact Non-Emergency issues call your: Primary Care Provider, Gear Inspector . . "Provider Documentation" section prepared by Joce Marvin. . VTE Core Measure Inpt VTE Proph given/why not?: Enoxaparin (Lovenox)SQ, SCD's
--- NOTE | 2017-07-20 15:12 | Discharge Summary ---
Discharge Summary Date of Service Jul 20, 2017. (Joce Marvin MD) Discharge Summary Admission Date: Jul 16, 2017 at 19:55 Discharge Date: Jul 20, 2017 Discharge Disposition: Home Principal Diagnosis: Shortness of breath Consultations: Cardiology Pulmonary (Joce Marvin MD) Problems/Secondary Diagnoses: HTN Paroxysmal atrial fibrillation Chronic pain syndrome Hyperlipidemia Hypothyroidism LUBNA GERD S/p Jessica fundoplication Suspected Pulmonary hypertension Chronic Nausea Hep C Ab screen preliminarily positive Chronic diastolic CHF Chronic right sided systolic CHF Trace pulmonic regurgitation Trace mitral regurgitation Mild tricuspid regurgitation (Rajni Haro MD) Discharge Exam Patient with no acute events overnight Denies any shortness of breath, chest pain, or palpitations Failed her two step this morning and will therefore need supplemental oxygen Review of Systems: Constitutional: No fever, No chills, No sweats Respiratory: No cough, No sputum, No shortness of breath Cardiovascular: No chest pain, No edema, No palpitations Abdomen: No pain, No nausea, No vomiting, No diarrhea Integumentary: No rash, No itch, No new/changing skin lesions (Joce Marvin MD) Hospital Course Patient is a 67 year old female with a past medical history of mild obstructive pulmonary disease, HTN, paroxysmal atrial fibrillation, chronic pain, hyperlipidemia, hypothyroidism, LUBNA, GERD, and s/p Joseluis fundoplication 6 years ago that presented with a several week history of shortness of breath and cough. She was found to have an O2 sat of 85% on room air at the outpatient clinic. 1) Acute Hypoxic Respiratory Failure - PFTs 2016- FVC of 80% of predicted, an FEV1 of 74% predicted, an FEV1 to FVC ratio of 74%, residual volume of 165% and a volume-adjusted DLCO of 121% --> mild obstructive change with reversibility with a reduced non-volume adjusted diffusion capacity - IV Methylprednisolone 60mg --> switched to PO with taper upon discharge (40--> 30-->20-->10) - Continue home combivent - Patient on home Dulera - CTA for PE 07/17 - No acute findings - Echo- class 1 left ventricular diastolic dysfunction with elevated Right sided heart pressures -----> will follow with Dr. Mckeon as an outpatient for possible R heart cath - 2 Step failed on 3L ---> will be discharged on 3L of O2 - Patient had a night oximetry done with desat for 2.5 minutes and does not qualify for CPAP----> would likely benefit from official sleep study as outpatient 2) Nausea - Chronic since Joseluis Fundoplication 6 years ago - Continue phenergan home dose 3) Paroxysmal Atrial Fibrillation - EKG: Currently in NSR - Tele: Did have paroxysmal afib on tele - On Sotalol 80mg BID - Tried to obtain outside cardiovascular records but did not receive them - [facility] of 3 - Patient would benefit from anticoagulation and would want to start xarelto - gave patient script but unable to get insurance authorization over weekend. Given script to take to pharmacy. Patient adamant that she does not want to start Warfarin. 4) Lower Extremity Edema - Start lasix 20mg OD - Stopped 60mg lasix once weekly 5) Hyperlipidemia - Zocor 6) GERD - Protonix - pepcid 7) Chronic Pain - Gabapentin 8) DVT - Lovenox 9) Hepatitis C - Hep C Ab screen preliminarily positive - Quanitative RnA confirmatory test ordered and pending at discharge Total Time Spent: Less than 30 minutes This includes examination of the patient, discharge planning, medication reconciliation, and communication with other providers. (Joce Marvin MD) Discharge Instructions Please refer to the electronic Patient Visit Report (Discharge Instructions) for additional information. (Joce Marvin MD) Additional Copies To Harvey Parekh M.D.; Kirt Mckeon M.D. Reviewed: Pt Seen/Exam by Me (Rajni Haro MD) History Resident Physician Supervision Note: I interviewed and examined the patient. Discussed with Dr. Marvin and agree with findings and plan as documented in the note. Any exceptions or clarifications are listed here: Pt feeling less SOB and has her home O2 delieveres to her room, is ready for discharge to home. Telemetry and vitals reviewed Obese, no distress, lying in bed on her side. Regular rate and rhythm, no murmurs gallops rubs Lungs with faint crackles at bases Abdomen obese positive bowel sounds soft nontender Extremities no edema Skin no rashes Echo: Normal left ventricular systolic function. Class 1 left ventricular diastolic dysfunction. Mild left atrial dilatation. Mild right ventricular dilatation. Moderately reduced right ventricular systolic function. Trace pulmonic regurgitation. Trace mitral regurgitation. Mild tricuspid regurgitation. Moderately elevated estimated right ventricular systolic pressure. -- Conclusions -- Aortic valve sclerosis mild, without significant aortic valvular stenosis 67-year-old female with acute hypoxemic respiratory failure and what appears to be asthma with possible mixed picture with COPD and decreased DLCO on recent PFTs. Also with paroxysmal atrial fibrillation on sotalol but no anticoagulation. Echo with suspicion of pulmonary hypertension and right-sided heart failure which could also be contributing to her dyspnea. CT angiogram poor quality but negative for large PE. Appreciate pulmonary consult Appreciate Cardiolgoy consultation -Continue nebulizers and supplemental oxygen, taper steroids, discontinued Levaquin due to nausea, other choices include doxycycline which makes her also very nauseous, azithromycin which could also prolong the QT in conjunction with sotalol, and she is allergic to penicillins-she is not producing any sputum and I'm reluctant to restart her on any further antibiotic coverage at this time as this seems more of an asthma picture rather than a severe COPD exacerbation -started anticoagulation. [id number] score is 3 = 3.2% CVA risk per year--> pt not interested in coumadin but willing to use Xarelto --> f/u with Cardiology as outpt and consider RIGHT HEART CATH -Overnight oximetry tonight and consider RHC for dx of PHTN--> can f/u with Cardio as outpt for this -started lasix 20mg daily--> was previously ordered 60mg daily but was only taking it once weekly as it made her urinate too much--> she is agreeable to do a lower dose and take it once daily instead Documented By: Rajni Haro (Rajni Haro MD)
[2017-07-20] MEDS ORDERED: RIVAROXABAN 20 MG TAB PO SCH ×2 (16:00→16:45)
[2017-07-20] MEDS ORDERED: PROM12.57 PO (16:26)
[2017-07-20] MEDS: PROMETHAZINE HCL INJ 25 MG in SODIUM CHLORIDE 0.9% 50ML 50 ML IV PRN (17:11)
== END 2017-07-20 18:07 | disposition home health service (06) | DRG 189 ==
LOC: C.2T 19:55
PROVIDERS: ADMIT Hospitalist; ATTEND Family Medicine
DX: J96.01 Acute respiratory failure with hypoxia (principal); J44.1 Chronic obstructive pulmonary disease with (acute) exacerbation; I48.0 Paroxysmal atrial fibrillation; I10 Essential (primary) hypertension; G89.29 Other chronic pain; E78.5 Hyperlipidemia, unspecified; F41.1 Generalized anxiety disorder; K21.9 Gastro-esophageal reflux disease without esophagitis; E03.9 Hypothyroidism, unspecified

== ENCOUNTER → 2017-08-21 | Outpatient (CLI) | payer OTHER, MEDICARE ==
[~2017-08-21] MED LIST: ALBU0.633 NEB; ALBU1.257 NEB; ALBU18002 INH; ALG PO; ALPR-411 PO; BTP80 PO; CETI10TA84 PO; CYAN10005 SQ; ERGO500037 PO; FAMO40TA6 PO; GABA-113 PO; LEVO50TA PO; LSX20 PO; MECL1TAB40 PO; MOME100A INH; NTRGSL/4 SL; NXM/40 PO; OXYC-57 PO; PROM12.57 PO; PSYL43PO PO; RIVA1TAB4 PO; SIMV20TA2 PO
--- NOTE | 2017-08-21 12:36 | DIAGNOSTIC IMAGING REPORT ---
NUCLEAR MEDICINE VENTILATION/PERFUSION SCAN CLINICAL HISTORY: Dyspnea. COMPARISON: Chest CT July 17, 2017. TECHNIQUE: For the ventilation portion of this exam, 32 mCi of DTPA was inhaled at 11:30 AM on August 21, 2017. Immediately following inhalation, imaging of the chest was carried out in the anterior, posterior, left lateral, right lateral, LPO, RPO, YORUBA and ODONNELL projections. For the perfusion portion of exam, 5.8 mCi of technetium 99m MAA was injected IV at 12:00 PM on August 31, 2017. Immediately following injection, imaging of the chest was carried out in the same projections. FINDINGS: There is a moderate to large mismatched defect within the right upper lobe. There may be a smaller mismatched defect within the right mid lung. This represents intermediate probability for pulmonary embolus. IMPRESSION: Moderate to large mismatched defect within the right upper lobe. The findings represent intermediate probability for pulmonary embolus. A CTA of the chest PE protocol is recommended given these suspicious findings. Electronically signed by: Jacques Terry M.D. 08/21/2017 12:34 PM Dictated Date/Time: 08/21/2017 12:22 PM
--- NOTE | 2017-08-21 12:47 | DIAGNOSTIC IMAGING REPORT ---
CHEST 2 VIEWS ROUTINE CLINICAL HISTORY: Aspiration into airway. Acute bronchitis. COMPARISON STUDY: Chest radiograph July 16, [address] July 17, 2017. FINDINGS: There is no pneumothorax or pleural effusion. There is no consolidation to suggest pneumonia. Linear bibasilar opacities suggest atelectasis. Mild cardiomegaly is unchanged. There is no evidence of pulmonary edema. IMPRESSION: 1. Linear bibasilar opacities suggestive of atelectasis. 2. Stable cardiomegaly without evidence of pulmonary edema. Electronically signed by: Jacques Terry M.D. 08/21/2017 12:46 PM Dictated Date/Time: 08/21/2017 12:44 PM
== END | disposition home or self-care (01) ==
LOC: C.NUCL 11:11
PROVIDERS: ATTEND Internal Medicine Pulmonary Disease
DX: R06.00 Dyspnea, unspecified (principal)

== ENCOUNTER 2017-11-14 12:55 | Emergency (ER) | payer OTHER, MEDICARE ==
[~2017-11-14] VITALS: Ht 162.6 cm; Wt 108.0 kg
[~2017-11-14 12:55] MED LIST changes: -ALBU1.257 NEB; +CRFUDL PO; -RIVA1TAB4 PO; +RQP25 PO
[2017-11-14 12:56] VITALS: TEMP 36.7; Ht 162.6 cm; Wt 108.0 kg
[2017-11-14] MEDS ORDERED: ALBUT/IPRATROP 3MG/0.5MG NEB 3 ML VIAL INH STA (13:04)
[2017-11-14] MEDS ORDERED: CEFEPIME IV 2,000 MG in DEXTROSE 5% 100ML 100 ML IV STA (13:04)
[2017-11-14] MEDS ORDERED: METHYLPREDNISOLONE 125 MG VIAL IV STA (13:04)
--- NOTE | 2017-11-14 13:17 | EMERGENCY ROOM VISIT NOTE ---
History Report prepared by Mei: Sanjeev Aparicio Under the Supervision of: Dr. Holden Urias M.D. First contact with patient: 13:01 Chief Complaint: SHORTNESS OF BREATH Stated Complaint: SHORTNESS OF BREATH History of Present Illness The patient is a 67 year old female who presents to the Emergency Room with complaints of worsening shortness of breath over the last couple days. She states that she currently has blood clots in her lungs, and is on Coumadin. The patient notes that she has a history of pneumonia and bronchitis as well. She states that she normally wears 3 liters of oxygen, and does not turn it up even if she has worsened shortness of breath. She adds that she uses a nebulizer machine as well. The patient says that she is coughing more, and it is productive. She says that her shortness of breath is worsened with exertion. She states that the congestion is mostly in her chest, and denies notable nasal congestion. The patient states that her legs hurt. She notes that she is on Amoxicillin currently for bacteria in her urine. She notes that she is not currently taking a steroid. She says that she has not had any known recent sick contacts with similar symptoms. She states that she did not get her flu shot this season. Source of History: patient Onset: Last couple days Position: other (global - sob) Quality: other (wears oxygen regularly) Timing: worsening Modifying Factors (Worsening): exertion Associated Symptoms: + cough Note: Associated symptoms: Chest congestion. Review of Systems See HPI for pertinent positives & negatives. A total of 10 systems reviewed and were otherwise negative. Past Medical & Surgical Medical Problems: (1) Acute right-sided CHF (congestive heart failure) (2) Asthma exacerbation (3) Atrial fibrillation (4) Hypoxia (5) Pulmonary embolism (6) Shortness of breath Family History No pertinent family history Social History Smoking Status: Never Smoker Drug Use: none Marital Status: Occupation Status: retired Current/Historical Medications Scheduled Albuterol Sulfate (Albuterol Sulfate), 1 VIAL NEB QID Amoxicillin (Amoxil), 500 MG PO BID Bifidobacterium (Align), 4 MG PO DAILY Cetirizine (Zyrtec), 10 MG PO DAILY Cyanocobalamin (Vitamin B-12), 1,000 MCG SQ MONTHLY Ergocalciferol (Vitamin D 88103 Unit), 1 CAP PO WK Esomeprazole Magnesium (Nexium), 40 MG PO DAILY Famotidine (Pepcid), 40 MG PO 8PM Furosemide (Furosemide), 20 MG PO QAM Gabapentin (Neurontin), 600 MG PO QID Levothyroxine Sodium (Synthroid), 1 TAB PO DAILY Mometasone Furoate-Formoterol (Dulera 100/5 Mcg), 1 PUFFS INH BID Prednisone (Prednisone), 0 PO DAILY Ropinirole HCl (Ropinirole HCl), 0.25 MG PO HS Sotalol HCl (Sotalol HCl), 80 MG PO BID Scheduled PRN Albuterol Sulfate (Proair Respiclick), 2 PUFFS INH Q4H PRN for SOB/Wheezing Alprazolam (Xanax), 0.25 MG PO Q8H PRN for Anxiety/Agitation Meclizine HCl (Meclizine HCl), 1 TAB PO TID PRN for Dizziness or Vertigo Nitroglycerin (Nitrostat), 1 TAB SL UD PRN for Chest Pain Oxycodone/Acetaminophen 5MG/325MG (Percocet 5MG/325MG), 1 TABLET PO Q6H PRN for Pain Promethazine (Phenergan ), 12.5-25 MG PO Q6H PRN for Nausea or Vomiting Psyllium (Metamucil Free & Natural), 1 DOSE PO DAILY PRN for Constipation Sucralfate (Sucralfate), 1 GM PO QID PRN for ACID REFLUX SYMPTOMS Allergies Coded Allergies: Penicillins (Verified Allergy, Unknown, ., 11/14/17) Physical Exam Vital Signs Date Time Temp Pulse Resp B/P (MAP) Pulse Ox O2 Delivery O2 Flow Rate FiO2 11/14/17 16:05 65 94 11/14/17 16:00 109/53 11/14/17 15:50 65 94 11/14/17 15:35 63 95 11/14/17 15:30 118/72 11/14/17 15:00 104/56 11/14/17 14:50 60 20 94 11/14/17 14:35 61 10 95 11/14/17 14:30 106/49 11/14/17 14:25 60 10 96 11/14/17 14:14 114/62 11/14/17 13:55 59 9 95 12/29/17 13:32 Nasal Cannula 3.0 93 11/14/17 13:31 93 Nasal Cannula 3.0 11/14/17 13:31 93 Ambu-Bag 3.0 11/14/17 13:28 62 11/14/17 12:56 36.7 64 22 126/75 94 Nasal Cannula 3.0 Physical Exam GENERAL: Patient is in no acute distress. HEENT: No acute trauma, normocephalic atraumatic, mucous membranes moist, no nasal congestion, no scleral icterus. NECK: No stridor, no adenopathy, no meningismus, trachea is midline. LUNGS: Decreased breath sounds with wheezing bilaterally and crackles in the left base. Breath sounds are equal. No respiratory distress. HEART: Without murmurs gallops or rubs, regular rate and rhythm. ABDOMEN: Soft, nontender, bowel sounds positive, no hernias, no peritonitis. EXTREMITIES: No cyanosis or edema, full range of motion of all the joints without pain or difficulty, no signs for acute trauma. NEUROLOGIC: Oriented x 3, no acute motor or sensory deficits, no focal weakness. SKIN: No rash, no jaundice, no diaphoresis. Medical Decision & Procedures ER Provider Diagnostic Interpretation: Radiology results as stated below per my review and radiologist interpretation: CHEST ONE VIEW PORTABLE CLINICAL HISTORY: 67 years-old Female presenting with EVALUATE RESPIRATORY DISTRESS.DYSPNEA. TECHNIQUE: Portable upright AP view of the chest was obtained. COMPARISON: 09/16/2017. FINDINGS: Atherosclerosis of the aortic arch. Cardiac silhouette normal in size. Mildly low lung volumes with hypoventilatory changes. Minimal left basilar opacity. No large effusion or pneumothorax. Degenerative changes of the right acromioclavicular joint. Upper abdomen normal. IMPRESSION: 1. Mildly low lung volumes with hypoventilatory changes in left basilar atelectasis. These findings are not significantly changed from prior. Electronically signed by: Bryan Locke M.D. 11/14/2017 1:43 PM Dictated Date/Time: 11/14/2017 1:41 PM CHEST CTA for PULMONARY ARTERIES CT DOSE: 644.57 mGy.cm HISTORY: Atypical chest pain. Short of breath. TECHNIQUE: Multiaxial CT images of the chest were performed following the intravenous administration of contrast to evaluate the pulmonary arteries. Maximal intensity projection images were also obtained. A dose lowering technique was utilized adhering to the principles of ALARA. COMPARISON STUDY: Chest CTA 07/17/2017. FINDINGS: Normal caliber thoracic aorta with no evidence for dissection. No pleural or pericardial effusions. The heart is borderline enlarged. Nondiagnostic evaluation the majority of the segmental and subsegmental pulmonary arteries seen within the right lung, lingula, and left lower lobe. The remaining pulmonary arteries show no filling defects to suggest a pulmonary embolus. The visualized liver, spleen, and adrenal glands are unremarkable. There is anastomotic suture material at the gastroesophageal junction. Cholecystectomy. Stable mediastinal lymph nodes. No hilar lymphadenopathy. No suspicious lytic or blastic osseous lesions. No pneumothorax. Punctate calcified granuloma within the left lung apex. Bibasilar linear densities favor subsegmental atelectasis. Bilateral lower lobe bronchial wall thickening. IMPRESSION: 1. No evidence for pulmonary embolus. Of note, there is respiratory motion artifact resulting in nondiagnostic evaluation of the majority of the segmental and subsegmental pulmonary arteries. 2. Normal caliber thoracic aorta with no evidence for dissection. 3. Bibasilar linear densities consistent with subsegmental atelectasis. Electronically signed by: Lamont Maurer M.D. 11/14/2017 3:35 PM Dictated Date/Time: 11/14/2017 3:23 PM Laboratory Results 11/14/17 13:30 Red Blood Count 4.61, Mean Corpuscular Volume 93.5, Mean Corpuscular Hemoglobin 30.4, Mean Corpuscular Hemoglobin Concent 32.5, Mean Platelet Volume 10.5, Neutrophils (%) (Auto) 54.6, Lymphocytes (%) (Auto) 26.3, Monocytes (%) (Auto) 9.3, Eosinophils (%) (Auto) 8.4, Basophils (%) (Auto) 1.1, Neutrophils # (Auto) 3.51, Lymphocytes # (Auto) 1.69, Monocytes # (Auto) 0.60, Eosinophils # (Auto) 0.54, Basophils # (Auto) 0.07 11/14/17 13:30 Test 11/14/17 13:25 11/14/17 13:30 Influenza Type A (RT-PCR) Neg for Influ A (NEG) Influenza Type B (RT-PCR) Neg for Influ B (NEG) White Blood Count 6.43 K/uL (4.8-10.8) Red Blood Count 4.61 M/uL (4.2-5.4) Hemoglobin 14.0 g/dL (12.0-16.0) Hematocrit 43.1 % (37-47) Mean Corpuscular Volume 93.5 fL (80-100) Mean Corpuscular Hemoglobin 30.4 pg (25-34) Mean Corpuscular Hemoglobin Concent 32.5 g/dl (32-36) Platelet Count 206 K/uL (130-400) Mean Platelet Volume 10.5 fL (7.4-10.4) Neutrophils (%) (Auto) 54.6 % Lymphocytes (%) (Auto) 26.3 % Monocytes (%) (Auto) 9.3 % Eosinophils (%) (Auto) 8.4 % Basophils (%) (Auto) 1.1 % Neutrophils # (Auto) 3.51 K/uL (1.4-6.5) Lymphocytes # (Auto) 1.69 K/uL (1.2-3.4) Monocytes # (Auto) 0.60 K/uL (0.11-0.59) Eosinophils # (Auto) 0.54 K/uL (0-0.5) Basophils # (Auto) 0.07 K/uL (0-0.2) RDW Standard Deviation 47.6 fL (36.4-46.3) RDW Coefficient of Variation 14.0 % (11.5-14.5) Immature Granulocyte % (Auto) 0.3 % Immature Granulocyte # (Auto) 0.02 K/uL (0.00-0.02) Prothrombin Time 15.8 SECONDS (9.0-12.0) Prothromb Time International Ratio 1.5 (0.9-1.1) Activated Partial Thromboplast Time 30.5 SECONDS (21.0-31.0) Partial Thromboplastin Ratio 1.2 Anion Gap 3.0 mmol/L (3-11) Est Creatinine Clear Calc Drug Dose 79.7 ml/min Estimated GFR () 87.2 Estimated GFR (Non- 75.2 BUN/Creatinine Ratio 23.0 (10-20) Lactic Acid Level 0.8 mmol/L (0.4-2.0) Calcium Level 8.6 mg/dl (8.5-10.1) Magnesium Level 2.3 mg/dl (1.8-2.4) Total Bilirubin 0.5 mg/dl (0.2-1) Aspartate Amino Transf (AST/SGOT) 10 U/L (15-37) Alanine Aminotransferase (ALT/SGPT) 16 U/L (12-78) Alkaline Phosphatase 95 U/L (45-117) Troponin I < 0.015 ng/ml (0-0.045) Total Protein 7.2 gm/dl (6.4-8.2) Albumin 3.5 gm/dl (3.4-5.0) Globulin 3.7 gm/dl (2.5-4.0) Albumin/Globulin Ratio 0.9 (0.9-2) Laboratory results reviewed by me. Medications Administered Medications (Trade) Dose Ordered Sig/Juliane Route Start Time Stop Time Status Last Admin Dose Admin Albuterol/ Ipratropium (Duoneb) 3 ml NOW STAT INH 11/14/17 13:04 11/14/17 13:13 DC 11/14/17 13:33 3 ML Methylprednisolone Sodium Succinate (Solu-Medrol IV) 80 mg NOW STAT IV 11/14/17 13:04 11/14/17 13:13 DC 11/14/17 13:33 80 MG Cefepime HCl 2000 mg/Dextrose 112.5 ml @ 200 mls/hr ONE STAT IV 11/14/17 13:04 11/14/17 13:37 DC 11/14/17 13:33 200 MLS/HR ECG Indication: SOB/dyspnea Rate (beats per minute): 61 Rhythm: normal sinus Findings: no acute ischemic change, other (nonspecific T-wave change) Comparison ECG Date: compared to 09/18/17, nonspecific T-wave change is slightly improved ED Course 1303: The patient was evaluated in room C8. A complete history and physical exam was performed. 1304: Ordered Cefepime HCl 2000 mg/Dextrose 112.5 ml @ 200 mls/hr IV, Solu- Medrol IV 80 mg, Duoneb 3 ml INH. 1419: I reevaluated the patient and she is doing okay. I updated her regarding the need for a CT of the chest. 1552: Reevaluated the patient and she is resting comfortably. Discussed results and discharge instructions: she verbalized understanding and agreement. The patient is ready for discharge. Medical Decision Differential diagnosis includes but is not limited to influenza, flu-like illness, pneumonia or bronchitis, CHF, PE, anemia, electrolyte imbalance, cardiac ischemia. There is no leukocytosis or concerning anemia. No significant electrolyte abnormality, kidney failure or hepatitis. Lactic acid level is not elevated making sepsis less likely. EKG shows a sinus rhythm, no acute ischemia. Cardiac enzyme testing 1 is not consistent with acute cardiac injury. Chest film does not show pneumonia or pneumothorax, no CHF. Chest CT does not show evidence for PE, no pneumonia seen. INR was subtherapeutic for someone using Coumadin. Influenza testing was negative. Blood cultures are pending. The patient received Solu-Medrol IV, she received IV cefepime as empiric antibiotic coverage. She received a DuoNeb. The patient is not hypoxic or toxic. Her workup is benign. I had a long conversation with her. She would like to be discharged home. I did suggest doxycycline as antibiotic coverage, she states that she cannot take this medication. Other potential antibiotics have interactions with her other medications. For now, she will discontinue the amoxicillin. I will add a prednisone taper. She will use her albuterol frequently. The patient will return here for any worsening dyspnea or if not improving. She will see her doctor this week coming. She appears to have acute bronchitis with a flare of COPD. Of note, the patient is going to take an extra dose of Coumadin this evening. She will need an INR recheck next week. Medication Reconcilliation Current Medication List: was personally reviewed by me Blood Pressure Screening Patient's blood pressure: Normal blood pressure Impression Primary Impression: Acute bronchitis Additional Impression: COPD exacerbation Scribe Attestation The scribe's documentation has been prepared under my direction and personally reviewed by me in its entirety. I confirm that the note above accurately reflects all work, treatment, procedures, and medical decision making performed by me. Departure Information Dispostion Home / Self-Care Prescriptions Prednisone (Prednisone) 20 Mg Tab 0 PO DAILY, #14 TAB 3 TABS DAILY FOR 2 DAYS, THEN 2 TABS DAILY FOR 2 DAYS, THEN 1 TAB DAILY FOR 2 DAYS, THEN 1/2 TAB DAILY FOR 2 DAYS. Prov: Holden Urias M.D. 11/14/17 Referrals Marcia Hutson D.O. (PCP) Patient Instructions My [facility] Additional Instructions add prednisone to your meds--first dose tomorrow am take an extra coumadin dose this evening continue the amoxicillin for now--no new antibitic given your other meds and allergies nebulizer treatment every 4 hours return for worsening symptoms or if not improving see moshe delgado this week workup today did not show any pneumonia Problem Qualifiers
[2017-11-14 13:31] VITALS: O2SAT 93
--- NOTE | 2017-11-14 13:44 | DIAGNOSTIC IMAGING REPORT ---
CHEST ONE VIEW PORTABLE CLINICAL HISTORY: 67 years-old Female presenting with EVALUATE RESPIRATORY DISTRESS.DYSPNEA. TECHNIQUE: Portable upright AP view of the chest was obtained. COMPARISON: 09/16/2017. FINDINGS: Atherosclerosis of the aortic arch. Cardiac silhouette normal in size. Mildly low lung volumes with hypoventilatory changes. Minimal left basilar opacity. No large effusion or pneumothorax. Degenerative changes of the right acromioclavicular joint. Upper abdomen normal. IMPRESSION: 1. Mildly low lung volumes with hypoventilatory changes in left basilar atelectasis. These findings are not significantly changed from prior. Electronically signed by: Bryan Locke M.D. 11/14/2017 1:43 PM Dictated Date/Time: 11/14/2017 1:41 PM
[2017-11-14 13:52] LABS: BASO % 1.1 %; BASO ABS # 0.07 K/uL (0-0.2); EOS % 8.4 %; EOS ABS # 0.54 K/uL (0-0.5); HEMATOCRIT 43.1 % (37-47); IG# 0.02 K/uL (0.00-0.02); LYMPH % 26.3 %; LYMPH ABS # 1.69 K/uL (1.2-3.4); MEAN CELL VOLUME 93.5 fL (80-100); MEAN CORPUSCULAR HEMOGLOBIN 30.4 pg (25-34); MEAN CORPUSCULAR HGB CONC 32.5 g/dl (32-36); MEAN PLATELET VOLUME 10.5 fL (7.4-10.4); MONO % 9.3 %; NEUT % 54.6 %; NEUT ABS # 3.51 K/uL (1.4-6.5); PLATELET COUNT 206 K/uL (130-400); RED CELL DISTRIBUTION WIDTH SD 47.6 fL (36.4-46.3); WHITE BLOOD COUNT 6.43 K/uL (4.8-10.8)
[2017-11-14] MEDS ORDERED: AMOX500C3 PO (13:52)
[2017-11-14 14:01] LABS: INR 1.5 (0.9-1.1); PTT PATIENT 30.5 SECONDS (21.0-31.0)
[2017-11-14 14:14] LABS: ALBUMIN 3.5 gm/dl (3.4-5.0); ALT/SGPT 16 U/L (12-78); AST/SGOT 10 U/L (15-37); BLOOD UREA NITROGEN 18 mg/dl (7-18); CALCIUM 8.6 mg/dl (8.5-10.1); CARBON DIOXIDE 35 mmol/L (21-32); GLUCOSE 104 mg/dl (70-99); POTASSIUM 4.7 mmol/L (3.5-5.1); SODIUM 141 mmol/L (136-145)
[2017-11-14 14:19] LABS: ALKALINE PHOSPHATASE 95 U/L (45-117); TOTAL PROTEIN 7.2 gm/dl (6.4-8.2)
[2017-11-14] MEDS ORDERED: OPTIRAY 320 IV PRN (14:30)
[2017-11-14 14:58] LABS: INFLUENZA A PCR Neg for Influ A (NEG); INFLUENZA B PCR Neg for Influ B (NEG)
--- NOTE | 2017-11-14 15:36 | DIAGNOSTIC IMAGING REPORT ---
CHEST CTA for PULMONARY ARTERIES CT DOSE: 644.57 mGy.cm HISTORY: Atypical chest pain. Short of breath. TECHNIQUE: Multiaxial CT images of the chest were performed following the intravenous administration of contrast to evaluate the pulmonary arteries. Maximal intensity projection images were also obtained. A dose lowering technique was utilized adhering to the principles of ALARA. COMPARISON STUDY: Chest CTA 07/17/2017. FINDINGS: Normal caliber thoracic aorta with no evidence for dissection. No pleural or pericardial effusions. The heart is borderline enlarged. Nondiagnostic evaluation the majority of the segmental and subsegmental pulmonary arteries seen within the right lung, lingula, and left lower lobe. The remaining pulmonary arteries show no filling defects to suggest a pulmonary embolus. The visualized liver, spleen, and adrenal glands are unremarkable. There is anastomotic suture material at the gastroesophageal junction. Cholecystectomy. Stable mediastinal lymph nodes. No hilar lymphadenopathy. No suspicious lytic or blastic osseous lesions. No pneumothorax. Punctate calcified granuloma within the left lung apex. Bibasilar linear densities favor subsegmental atelectasis. Bilateral lower lobe bronchial wall thickening. IMPRESSION: 1. No evidence for pulmonary embolus. Of note, there is respiratory motion artifact resulting in nondiagnostic evaluation of the majority of the segmental and subsegmental pulmonary arteries. 2. Normal caliber thoracic aorta with no evidence for dissection. 3. Bibasilar linear densities consistent with subsegmental atelectasis. Electronically signed by: Lamont Maurer M.D. 11/14/2017 3:35 PM Dictated Date/Time: 11/14/2017 3:23 PM
[2017-11-14 16:00] VITALS: BP 109/53
[2017-11-14] MEDS ORDERED: DOXYCYCLINE HYCLATE 100 MG CAP PO ONE (16:00)
[2017-11-14 16:05] VITALS: PULSE 65; O2SAT 94
[2017-11-14] MEDS ORDERED: PRED20TA PO (16:05)
[2017-12-09] MEDS ORDERED: MECL1TAB42 PO (08:45)
[2017-12-09] MEDS ORDERED: NXM/40 PO (08:45)
[2017-12-09] MEDS ORDERED: XPNINS125 (08:45)
[2017-12-09] MEDS ORDERED: SIMV20TA2 PO (08:45)
[2017-12-09] MEDS ORDERED: WARF4TAB8 PO (08:45)
[2017-12-09] MEDS ORDERED: TIOT1AER (08:45)
[2017-12-09] MEDS ORDERED: LEVA45AE (08:45)
[2017-12-09] MEDS ORDERED: POTA20TA13 PO (08:45)
[2017-12-09] MEDS ORDERED: ONDA4TAB46 PO (08:45)
[2017-12-09] MEDS ORDERED: HYDR25SU20 PR (08:47)
== END 2017-11-14 16:32 | disposition home or self-care (01) ==
LOC: C.EDB 12:56 → C.EDC 16:32
DX: J44.1 Chronic obstructive pulmonary disease with (acute) exacerbation (principal); Z79.01 Long term (current) use of anticoagulants; Z87.01 Personal history of pneumonia (recurrent); I48.91 Unspecified atrial fibrillation; Z86.711 Personal history of pulmonary embolism; Z79.899 Other long term (current) drug therapy

== ENCOUNTER → 2017-12-09 | Day surgery (SDC) | payer OTHER, MEDICARE ==
[~2017-12-09] VITALS: Ht 162.6 cm; Wt 105.0 kg
[~2017-12-09] MED LIST changes: +AMOX500C3 PO; +FENTANYL CITRATE INJ 50 MCG/1 ML 2 ML VIAL ONE; +HYDR25SU20 PR; +LEVA45AE; +MECL1TAB42 PO; +MIDAZOLAM HCL 1 MG/ML 2ML VIAL ONE; +ONDA4TAB46 PO; +POTA20TA13 PO; +PRED20TA PO; +TIOT1AER; +WARF4TAB8 PO; +XPNINS125
[2017-12-09 08:51] VITALS: BP 125/68; PULSE 61; TEMP 36.5; O2SAT 96; Ht 162.6 cm; Wt 105.0 kg
--- NOTE | 2017-12-09 09:27 | History & Physical Bridge Note ---
H&P Re-Evaluation Bridge Note: I have examined the patient, reviewed the History & Physical and in the interval since the performance of the History & Physical I have noted the following changes of clinical significance: No changes noted
--- NOTE | 2017-12-09 09:28 | Pre Sedation Assessment ---
Pre Sedation Assessment General Date of Sedation: Dec 09, 2017. Vital Signs Past 12 Hours Date Time Temp Pulse Resp B/P (MAP) Pulse Ox O2 Delivery O2 Flow Rate FiO2 12/09/17 08:51 36.5 61 18 125/68 (87) 96 Review Cardiovascular: regular rate, rhythm, no edema Lungs: chest non-tender, lungs clear Pre-Sedation Airway Assessment Smoking Status: Never Smoker Hx of Sleep Apnea: No Hx of difficult intubation: No Short Thick Neck: Yes Thyro-mental Distance: < or =3 Finger Breadths Oral Cavity: WNL Mallampati Classification: Class IV ASA Classification: Class III NPO Status Date of Last Intake of Fluids: Dec 08, 2017 Date of Last Intake of Solids: Dec 08, 2017 Procedure Planning Contraindications for Sedation: None Current Medications Reviewed: Yes Notes The planned sedation has been discussed with the patient. Informed Consent was obtained. I have identified the patient, determined the appropriateness of sedation and have assessed the patient immediately prior to the procedure. All medicine(s) and interventions are by my order.
--- NOTE | 2017-12-09 10:07 | Discharge Instructions ---
Discharge Instructions Procedure Procedure Date: Dec 09, 2017. Reason for Visit: Dyspnea. Discharge Discharge Date: Dec 09, 2017. Discharge Diagnosis: Diastolic heart failure Last Recorded Wt (Kilograms): 105 Instructions Activity Recommendations: resume regular activity Recommended Home Diet: low sodium Allergies: Coded Allergies: Penicillins (Verified Allergy, Unknown, ., 12/09/17) Follow Up Additional Instructions: ACTIVITY RECOMMENDATIONS: * Keep the site of the procedure covered with a bandage for 24 hours. *You may shower the day after the procedure. Do not take a tub bath or submerge the puncture site in water for the next 3 days. SPECIAL CARE INSTRUCTIONS: The site may be slightly bruised and sore following your procedure. Should any of the following occur, contact the Dr. who performed your procedure. 1. Redness/inflammation, swelling, chills, or fever, or colored drainage at procedure site within 3-7 days after your procedure. 2. Coldness, discoloration, ongoing numbness, severe pain, or swelling. Expect mild tingling of hand and tenderness at the puncture site for up to three days. If this persists beyond three days, or other symptoms develop, notify the Dr. who performed your procedure. BLEEDING: If the procedure site on your wrist begins to bleed, do not panic 1. Place 1 or 2 fingers firmly just slightly above the insertion site to stop the bleeding. 2. Lift your finger after 5 minutes to see if the bleeding has stopped. SKIN IRRITATION: * You may experience some redness and/or swelling in the area where radiation was administered. If any skin irritation occurs, please contact your family physician. FOLLOW UP VISIT: Keep any scheduled doctor appointments. Follow-up with: As scheduled with Ry Durán Recommendations: Call your doctor if: * Temperature above 101 degrees * Pain not relieved by pain medicine ordered * There is increased drainage or redness from any incision * You have any unanswered questions or concerns. Your Doctors Instructions noted above were prepared by provider Redd Anguiano. Patient Signature Section: Patient Instructions Signature Page Damari Navarro Patient (or Guardian) Signature/Date: I have read and understand the instructions given to me by my caregivers. Caregiver/RN/Doctor Signature/Date: The above-named patient and/or guardian has received patient instructions on this date. + Original Patient Signature Page (only) stays with chart. Please make copy for patient.
--- NOTE | 2017-12-09 10:14 | Cardiac Catheterization ---
Procedure Note Procedure Date Dec 09, 2017. Pre-Procedure Diagnosis Cardiothoracic Symptom AUC Score 7 Post-Procedure Diagnosis Elevated Intracardiac Pressures Procedure(s) Performed Right Heart Cath Manufacturing Laborer Silvio Yarn Salvager(s) Estimated Blood Loss 5 Medication(s) Lidocaine 1% Summary of Findings Right Heart Catheterization - Sterile IV placed into right antecubital vein. - Exchanged for 6Fr slender sheath - 6Fr swan guided to pulmonary artery under fluoroscopic guidance - Manual compression post sheath removal Findings: RA 8 RV 38/11 RPA 40/14 (26) LPA 43/13 (27) PCW 18 PaSat 65% AoSat 100% on 3L BP 130/70s, HR 56 Jose CO/CI 4.2/2.0 Thermo Co/CI 3.7/1.8 SUMMARY: 1. Mildly elevated left and right sided filling pressures. 2. Borderline pulmonary hypertension 3. Borderline reduced cardiac output. Recommendations: -- Continued diuretics -- will increase lasix from 20 to 40mg daily. -- Follow-up as scheduled with pulmonary Hemodynamics Rest Ao: -- Final Ao: -- LV: -- Recommendations Medical therapy and/or Counseling Specimens None Radiation Exposure (mGy) 39 Contrast (mls) 0 Fluids (cc crystalloids) 0 Drains None Anesthesia Moderate Procedural Complication(s) None Disposition Director Telehealth Holding/Recovery ACC Data Cardiac Status Clinical evaluation leading to the procedure CAD Presntation: Sx unlikely to be ischemic Anginal Classification: No symptoms Heart Failure: Yes, NYHA Class: CCS II Cardiogenic Shock w/in 24Hrs: No Cardiac Arrest w/in 24Hrs: No Imaging studies past 6 months: Yes Stress studies past 6 months: No Diagnostic Physician's Name: A Closure Device Percutaneous Entry Location: Antecubital vein Closure Device: none - manual hold Recommendations: Medical therapy and/or Counseling Intraprocedure Events Significant Dissection: No Perforation: No
[2017-12-09 10:15] VITALS: BP 138/68; PULSE 58; O2SAT 98
== END | disposition home or self-care (01) ==
LOC: C.CATH 08:29
PROVIDERS: ATTEND Internal Medicine Interventional Cardiology
DX: I48.91 Unspecified atrial fibrillation (principal); I27.20 Pulmonary hypertension, unspecified; I26.99 Other pulmonary embolism without acute cor pulmonale; J44.9 Chronic obstructive pulmonary disease, unspecified; Z79.01 Long term (current) use of anticoagulants; J45.909 Unspecified asthma, uncomplicated; E03.9 Hypothyroidism, unspecified; Z82.49 Family history of ischemic heart disease and other diseases of the circulatory system; Z82.3 Family history of stroke; Z83.3 Family history of diabetes mellitus; Z79.899 Other long term (current) drug therapy; Z88.0 Allergy status to penicillin